=== PATIENT | female | born 1990 | race Caucasian/White ===

== ENCOUNTER 2016-07-27 16:52 | Emergency (ER) | payer OTHER ==
[~2016-07-27] VITALS: Ht 170.2 cm; Wt 56.7 kg
[~2016-07-27 16:52] MED LIST: AMIT10TA PO; BIRTH CONTROL PILL PO; FENTANY TD; GUAI200T3 PO; HYDR-3138 PO; INSU100C5 SQ-INSULIN; INSU100V13 SQ; INSU100V13 SQ-INSULIN; LEVO500T33 PO; NICO1PAT10 TD; NORT10CA PO; NORT50CA PO; OXYC-223 PO; OXYC5TAB3 PO; POLY17PO5 PO; PREG100C PO; SULF1TAB24 PO
[2016-07-27] MEDS ORDERED: LIDOCAINE 1%-EPI 1:100K, 20ML SQ ONE (17:30)
[2016-07-27] MEDS ORDERED: HYDROcodone/APAP 5/325 TABLET ONE (17:55)
[2016-07-27] MEDS ORDERED: HYDROcodone/APAP 5/325 TABLET PO ONE (18:00)
[2016-07-27] MEDS ORDERED: CEFAZOLIN 1,000 MG IM ONE (18:30)
[2016-07-27] MEDS ORDERED: SULFAMETH./TRIMETHOPRIM DS 800MG/160MG TABLET PO ONE (18:30)
[2016-07-27] MEDS ORDERED: CEFAZOLIN 1,000 MG ONE (18:36)
[2016-07-27] MEDS ORDERED: SULFAMETH./TRIMETHOPRIM DS 800MG/160MG TABLET ONE (18:36)
[2016-07-27 19:01] VITALS: BP 118/76
== END 2016-07-27 19:04 | disposition home or self-care (01) ==
LOC: ED 18:28
DX: N76.4 Abscess of vulva (principal); E11.9 Type 2 diabetes mellitus without complications
CPT/HCPCS: 96372; 99284; J0690; J3490

== ENCOUNTER 2016-08-01 19:52 | Inpatient (IN) | payer OTHER ==
[~2016-08-01] VITALS: Ht 170.2 cm; Wt 67.0 kg
[2016-08-01] MEDS ORDERED: ONDANSETRON 2MG/ML, 2ML IVPush ONE (20:30)
[2016-08-01 20:44] LABS: BLOOD UREA NITROGEN 12 mg/dL (7-18)
[2016-08-01 20:50] LABS: ASPARTATE AMINO TRANSFERASE 32 U/L (15-37)
[2016-08-01] MEDS ORDERED: SODIUM CHLORIDE 0.9% 1,000 ML IV ONE (20:56)
[2016-08-01] MEDS ORDERED: MORPHINE SULFATE 4 MG/ML, 1ML ONE ×3 (20:59→23:55)
[2016-08-01] MEDS ORDERED: ONDANSETRON 2MG/ML, 2ML ONE (20:59)
[2016-08-01] MEDS ORDERED: SODIUM CHLORIDE FLUSH 10ML SYR IVF ONE (21:00)
[2016-08-01] MEDS ORDERED: SODIUM CHLORIDE 0.9% 1,000ML IVBOLUS ONE ×2 (21:00→21:30)
[2016-08-01] MEDS: MORPHINE SULFATE 4 MG/ML, 1ML IVPush PRN ×2 (21:06→22:10)
[2016-08-01] MEDS ORDERED: INSULIN REGULAR 100 UNITS/ML, 3ML VIAL IVPush ONE (21:30)
[2016-08-01] MEDS ORDERED: POTASSIUM CHLORIDE 20 MEQ TAB.ER.PRT PO ONE (21:30)
[2016-08-01] MEDS ORDERED: POTASSIUM CHLORIDE 20 MEQ TAB.ER.PRT ONE (21:59)
[2016-08-01] MEDS ORDERED: INSULIN REGULAR 100 UNITS/ML, 3ML VIAL ONE (22:00)
[2016-08-01] MEDS ORDERED: LIDOCAINE 1%-EPI 1:100K, 20ML ONE (23:16)
[2016-08-02] MEDS ORDERED: CEFTAROLINE 600 MG in SODIUM CHLORIDE 0.9% 100 ML IV ONE
[2016-08-02] MEDS ORDERED: MORPHINE SULFATE 4 MG/ML, 1ML IVPush ONE
[2016-08-02] MEDS ORDERED: DIPHENHYDRAMINE 50 MG/ML, 1ML ONE (00:24)
[2016-08-02] MEDS ORDERED: DIPHENHYDRAMINE 50 MG/ML, 1ML IVPush ONE (00:30)
[2016-08-02] MEDS ORDERED: SODIUM CHLORIDE 0.9% 1,000 ML IV ONE (01:06)
[2016-08-02] MEDS ORDERED: MORPHINE SULFATE 4 MG/ML, 1ML IVPush PRN (01:30)
[2016-08-02] MEDS ORDERED: ONDANSETRON 2MG/ML, 2ML IVPush PRN ×2 (01:30→15:30)
[2016-08-02] MEDS ORDERED: ACETAMINOPHEN 325 MG TABLET PO PRN (01:30)
[2016-08-02] MEDS ORDERED: OMNIPAQUE 350 MG/ML, 100ML BOTTLE ONE (02:30)
[2016-08-02] MEDS: NICOTINE 14MG/24 HR PATCH.TD24 TD SCH (02:40)
[2016-08-02] MEDS: INSULIN ASPART 100 UNITS/ML, PEN SQ-INSULIN SCH ×5 (03:23→22:25)
[2016-08-02 04:35] VITALS: BP 122/88
[2016-08-02 07:28] VITALS: BP 109/71
[2016-08-02] MEDS: FAMOTIDINE 20 MG TABLET PO SCH ×2 (08:37→22:00)
[2016-08-02] MEDS: NS + 20MEQ KCL 1,000 ML IV SCH ×2 (08:37→19:56)
[2016-08-02] MEDS ORDERED: morphine SULFATE 10 MG/ML, 1ML ONE (09:36)
[2016-08-02] MEDS: MORPHINE SULFATE 4 MG/ML, 1ML IVPush PRN ×3 (09:42→18:42)
[2016-08-02] MEDS: DIPHENHYDRAMINE 25 MG CAPSULE PO PRN ×2 (11:01→22:01)
[2016-08-02] MEDS ORDERED: DEXTROSE 50%, 50ML SYRINGE IVPush PRN (11:30)
[2016-08-02] MEDS ORDERED: LORazepam 2 MG/ML, 1ML IVPush PRN (11:30)
[2016-08-02] MEDS: SODIUM CHLORIDE FLUSH 10ML SYR IVF SCH ×2 (11:30→22:00)
[2016-08-02] MEDS ORDERED: GLUCAGON 1 MG IM PRN (11:30)
[2016-08-02] MEDS ORDERED: DEXTROSE 4 GM TAB.CHEW PO PRN (11:30)
[2016-08-02] MEDS: CEFTAROLINE 600 MG in SODIUM CHLORIDE 0.9% 100 ML IV SCH (12:13)
[2016-08-02] MEDS ORDERED: MIDAZOLAM 1 MG/ML, 2ML ONE (14:36)
[2016-08-02] MEDS ORDERED: FENTANYL PF 100 MCG/2ML ONE ×2 (14:36→15:44)
[2016-08-02] MEDS ORDERED: PROPOFOL 10 MG/ML, 20ML ONE ×2 (14:43)
[2016-08-02] MEDS ORDERED: ONDANSETRON 2MG/ML, 2ML ONE ×2 (14:43)
[2016-08-02] MEDS ORDERED: CEFAZOLIN 1,000 MG ONE ×2 (14:43)
[2016-08-02] MEDS ORDERED: ROCURONIUM 10 MG/ML ONE ×2 (14:43)
[2016-08-02] MEDS ORDERED: KETOROLAC 30 MG/1 ML ONE ×2 (14:43)
[2016-08-02] MEDS ORDERED: SUCCINYLCHOLINE 20 MG/ML, 10ML ONE ×2 (14:43)
[2016-08-02] MEDS ORDERED: DEXAMETHASONE 4 MG/ML, 1ML ONE ×2 (14:43)
[2016-08-02] MEDS ORDERED: MIDAZOLAM 1 MG/ML, 2ML IV PRN (15:30)
[2016-08-02] MEDS ORDERED: FENTANYL PF 100 MCG/2ML IV PRN (15:30)
[2016-08-02] MEDS ORDERED: MEPERIDINE/PF 25MG/0.5ML IVPush PRN (15:30)
[2016-08-02] MEDS ORDERED: OXYcodone 5 MG/5 ML ORAL.SOL UDC PO PRN (15:30)
[2016-08-02] MEDS ORDERED: ALBUTEROL SULFATE 2.5 MG/3 ML NPPB PRN (15:30)
[2016-08-02] MEDS ORDERED: LABETALOL 5MG/ML, 20ML IV PRN (15:30)
[2016-08-02] MEDS ORDERED: hydrALAzine 20 MG/ML, 1ML IV PRN (15:30)
[2016-08-02] MEDS ORDERED: HYDROmorphone 2 MG/ML, 1ML ONE (15:44)
[2016-08-02] MEDS ORDERED: OXYcodone 5 MG/5 ML ORAL.SOL UDC ONE (15:44)
[2016-08-02] MEDS: HYDROmorphone 1 MG/ML, 1ML IV PRN ×4 (15:49→16:22)
[2016-08-02 19:11] VITALS: BP 109/73
[2016-08-02 20:28] LABS: BLOOD UREA NITROGEN 9 mg/dL (7-18)
[2016-08-02] MEDS: OXYcodone/APAP 5/325MG TABLET PO PRN (22:01)
[2016-08-03 00:30] VITALS: BP 102/68
[2016-08-03] MEDS: CEFTAROLINE 600 MG in SODIUM CHLORIDE 0.9% 100 ML IV SCH ×2 (00:33→12:13)
[2016-08-03] MEDS: MORPHINE SULFATE 4 MG/ML, 1ML IVPush PRN ×2 (00:33→13:18)
[2016-08-03] MEDS: NICOTINE 14MG/24 HR PATCH.TD24 TD SCH (01:30)
[2016-08-03] MEDS: OXYcodone/APAP 5/325MG TABLET PO PRN ×6 (01:57→22:47)
[2016-08-03 04:00] VITALS: BP 106/73
[2016-08-03 05:44] LABS: BLOOD UREA NITROGEN 16 mg/dL (7-18)
[2016-08-03] MEDS: NS + 20MEQ KCL 1,000 ML IV SCH ×2 (06:20→14:30)
[2016-08-03 06:50] VITALS: BP 119/83
[2016-08-03] MEDS: INSULIN ASPART 100 UNITS/ML, PEN SQ-INSULIN SCH ×4 (07:19→21:00)
[2016-08-03] MEDS: FAMOTIDINE 20 MG TABLET PO SCH ×2 (10:27→21:49)
[2016-08-03] MEDS: SODIUM CHLORIDE FLUSH 10ML SYR IVF SCH ×2 (10:28→21:49)
[2016-08-03] MEDS: LORazepam 2 MG/ML, 1ML IVPush PRN (13:17)
[2016-08-03 14:44] VITALS: BP 120/76
[2016-08-03] MEDS: ENOXAPARIN 40 MG/0.4 ML SQ SCH (17:12)
[2016-08-03 20:55] VITALS: BP 126/69
[2016-08-04] MEDS: CEFTAROLINE 600 MG in SODIUM CHLORIDE 0.9% 100 ML IV SCH ×2 (01:00→14:26)
[2016-08-04] MEDS: NICOTINE 14MG/24 HR PATCH.TD24 TD SCH (01:01)
[2016-08-04 02:30] VITALS: BP 115/62
[2016-08-04] MEDS: OXYcodone/APAP 5/325MG TABLET PO PRN ×4 (03:17→19:48)
[2016-08-04 04:58] LABS: BLOOD UREA NITROGEN 24 mg/dL (7-18)
[2016-08-04 05:00] VITALS: BP 112/78
[2016-08-04 06:40] VITALS: BP 117/82
[2016-08-04] MEDS: INSULIN ASPART 100 UNITS/ML, PEN SQ-INSULIN SCH ×5 (07:14→21:00)
[2016-08-04 08:33] VITALS: BP 129/90
[2016-08-04] MEDS: SODIUM CHLORIDE FLUSH 10ML SYR IVF SCH ×2 (08:55→21:00)
[2016-08-04 13:03] VITALS: BP 123/88
[2016-08-04] MEDS: ENOXAPARIN 40 MG/0.4 ML SQ SCH (16:30)
[2016-08-04 20:23] VITALS: BP_SYST 105; BP_SYST 137; BP_DIAS 101; BP_DIAS 69
[2016-08-05] MEDS: OXYcodone IR 5MG TABLET PO PRN ×5 (00:19→19:41)
[2016-08-05] MEDS: NICOTINE 14MG/24 HR PATCH.TD24 TD SCH (00:52)
[2016-08-05 01:17] VITALS: BP 121/86
[2016-08-05] MEDS: CEFTAROLINE 600 MG in SODIUM CHLORIDE 0.9% 100 ML IV SCH ×2 (03:02→15:28)
[2016-08-05 04:46] LABS: BLOOD UREA NITROGEN 20 mg/dL (7-18)
[2016-08-05] MEDS: ONDANSETRON 2MG/ML, 2ML IVP PRN ×3 (05:25→19:40)
[2016-08-05] MEDS: INSULIN ASPART 100 UNITS/ML, PEN SQ-INSULIN SCH ×4 (07:00→21:00)
[2016-08-05] MEDS: SODIUM CHLORIDE FLUSH 10ML SYR IVF SCH ×2 (08:30→21:58)
[2016-08-05 08:34] VITALS: BP 140/97
[2016-08-05] MEDS: MORPHINE SULFATE 4 MG/ML, 1ML IVPush PRN ×2 (12:24→19:40)
[2016-08-05 13:43] VITALS: BP 110/73
[2016-08-05] MEDS: ENOXAPARIN 40 MG/0.4 ML SQ SCH (16:30)
[2016-08-05 19:07] VITALS: BP 112/77
[2016-08-05] MEDS: FLUCONAZOLE 200 MG/100 ML 100 ML IV SCH (21:52)
[2016-08-06] MEDS: MORPHINE SULFATE 4 MG/ML, 1ML IVPush PRN ×2 (00:26→13:32)
[2016-08-06] MEDS: LORazepam 2 MG/ML, 1ML IVPush PRN ×2 (00:26→04:37)
[2016-08-06] MEDS: NICOTINE 14MG/24 HR PATCH.TD24 TD SCH (00:27)
[2016-08-06 01:58] VITALS: BP 107/75
[2016-08-06] MEDS: ONDANSETRON 2MG/ML, 2ML IVP PRN ×3 (02:21→14:31)
[2016-08-06] MEDS: CEFTAROLINE 600 MG in SODIUM CHLORIDE 0.9% 100 ML IV SCH ×2 (02:21→14:31)
[2016-08-06] MEDS: OXYcodone IR 5MG TABLET PO PRN ×3 (04:43→16:15)
[2016-08-06 05:41] LABS: BLOOD UREA NITROGEN 15 mg/dL (7-18)
[2016-08-06] MEDS: INSULIN ASPART 100 UNITS/ML, PEN SQ-INSULIN SCH ×4 (07:00→21:00)
[2016-08-06 07:38] VITALS: BP 108/76
[2016-08-06] MEDS: SODIUM CHLORIDE FLUSH 10ML SYR IVF SCH ×2 (08:17→22:21)
[2016-08-06 13:08] VITALS: BP 117/84
[2016-08-06] MEDS: ENOXAPARIN 40 MG/0.4 ML SQ SCH ×2 (15:54→18:10)
[2016-08-06 18:33] VITALS: BP 123/86
[2016-08-06] MEDS: FLUCONAZOLE 200 MG/100 ML 100 ML IV SCH (19:59)
[2016-08-06] MEDS: METOCLOPRAMIDE 5 MG/ML, 2ML IVPush PRN (19:59)
[2016-08-06] MEDS: LACTOBACILLUS CHEW TABLET PO SCH (22:19)
[2016-08-06] MEDS: BISACODYL 5 MG EC TABLET PO SCH (22:19)
[2016-08-07] MEDS: NICOTINE 14MG/24 HR PATCH.TD24 TD SCH (01:30)
[2016-08-07 02:03] VITALS: BP 129/90
[2016-08-07] MEDS: CEFTAROLINE 600 MG in SODIUM CHLORIDE 0.9% 100 ML IV SCH ×2 (02:37→14:27)
[2016-08-07] MEDS: METOCLOPRAMIDE 5 MG/ML, 2ML IVPush PRN ×3 (02:38→20:52)
[2016-08-07 06:36] LABS: BLOOD UREA NITROGEN 13 mg/dL (7-18)
[2016-08-07] MEDS: INSULIN ASPART 100 UNITS/ML, PEN SQ-INSULIN SCH ×4 (07:00→20:52)
[2016-08-07 07:16] VITALS: BP 117/83
[2016-08-07] MEDS: BISACODYL 5 MG EC TABLET PO SCH ×2 (09:03→20:52)
[2016-08-07] MEDS: OXYcodone IR 5MG TABLET PO PRN ×2 (09:03→16:46)
[2016-08-07] MEDS: LACTOBACILLUS CHEW TABLET PO SCH ×3 (09:03→20:52)
[2016-08-07] MEDS: SODIUM CHLORIDE FLUSH 10ML SYR IVF SCH ×2 (09:05→20:52)
[2016-08-07] MEDS: POLYETHYLENE GLYCOL 17 GM PACKET PO PRN (12:54)
[2016-08-07 14:48] VITALS: BP 119/79
[2016-08-07] MEDS: ENOXAPARIN 40 MG/0.4 ML SQ SCH (17:45)
[2016-08-07] MEDS ORDERED: BISACODYL 10 MG SUPP PR PRN (18:00)
[2016-08-07 19:10] VITALS: BP 97/58
[2016-08-07] MEDS: FLUCONAZOLE 200 MG/100 ML 100 ML IV SCH (20:51)
[2016-08-08] MEDS: NICOTINE 14MG/24 HR PATCH.TD24 TD SCH (01:29)
[2016-08-08 01:47] VITALS: BP 99/63
[2016-08-08] MEDS: CEFTAROLINE 600 MG in SODIUM CHLORIDE 0.9% 100 ML IV SCH ×2 (02:38→14:57)
[2016-08-08] MEDS: METOCLOPRAMIDE 5 MG/ML, 2ML IVPush PRN (04:02)
[2016-08-08 07:02] LABS: BLOOD UREA NITROGEN 14 mg/dL (7-18)
[2016-08-08] MEDS: BISACODYL 5 MG EC TABLET PO SCH ×2 (07:40→19:52)
[2016-08-08] MEDS: LACTOBACILLUS CHEW TABLET PO SCH ×3 (07:40→20:03)
[2016-08-08] MEDS: OXYcodone IR 5MG TABLET PO PRN ×2 (07:40→20:03)
[2016-08-08] MEDS: POLYETHYLENE GLYCOL 17 GM PACKET PO PRN (07:40)
[2016-08-08] MEDS: SODIUM CHLORIDE FLUSH 10ML SYR IVF SCH ×2 (07:41→20:06)
[2016-08-08 07:50] VITALS: BP 116/79
[2016-08-08] MEDS: INSULIN ASPART 100 UNITS/ML, PEN SQ-INSULIN SCH ×4 (09:01→20:08)
[2016-08-08] MEDS: MORPHINE SULFATE 4 MG/ML, 1ML IVPush PRN (13:41)
[2016-08-08 15:30] VITALS: BP 103/64
[2016-08-08] MEDS: ENOXAPARIN 40 MG/0.4 ML SQ SCH (17:21)
[2016-08-08 19:43] VITALS: BP 102/69
[2016-08-08] MEDS: FLUCONAZOLE 200 MG/100 ML 100 ML IV SCH (20:03)
[2016-08-09] MEDS: NICOTINE 14MG/24 HR PATCH.TD24 TD SCH (01:30)
[2016-08-09] MEDS: CEFTAROLINE 600 MG in SODIUM CHLORIDE 0.9% 100 ML IV SCH ×2 (02:36→17:54)
[2016-08-09 02:42] VITALS: BP 110/73
[2016-08-09] MEDS: INSULIN ASPART 100 UNITS/ML, PEN SQ-INSULIN SCH ×4 (07:00→21:09)
[2016-08-09] MEDS: SODIUM CHLORIDE FLUSH 10ML SYR IVF SCH ×2 (08:28→20:55)
[2016-08-09] MEDS: BISACODYL 5 MG EC TABLET PO SCH ×2 (08:28→20:56)
[2016-08-09] MEDS: LACTOBACILLUS CHEW TABLET PO SCH ×3 (08:29→20:55)
[2016-08-09 08:38] VITALS: BP 116/77
[2016-08-09] MEDS ORDERED: VANCOMYCIN PER PHARMACY MC PRN (10:00)
[2016-08-09] MEDS ORDERED: AMPICILLIN/SULBACTAM 3 GM in SODIUM CHLORIDE 0.9% 100 ML IV SCH (11:00)
[2016-08-09] MEDS: [UNRECOGNIZED DRUG - REMARK] MC SCH ×2 (13:30→14:30)
[2016-08-09 14:00] VITALS: BP 120/81
[2016-08-09] MEDS: METRONIDAZOLE PMX 500MG/100ML 100 ML IV SCH ×2 (15:55→23:17)
[2016-08-09] MEDS: MORPHINE SULFATE 4 MG/ML, 1ML IVPush PRN (16:24)
[2016-08-09] MEDS: ENOXAPARIN 40 MG/0.4 ML SQ SCH (18:00)
[2016-08-09 19:38] VITALS: BP 114/79
[2016-08-09] MEDS: OXYcodone IR 5MG TABLET PO PRN (20:55)
[2016-08-09] MEDS: FLUCONAZOLE 200 MG/100 ML 100 ML IV SCH (20:55)
[2016-08-10] MEDS: NICOTINE 14MG/24 HR PATCH.TD24 TD SCH (00:43)
[2016-08-10] MEDS: OXYcodone IR 5MG TABLET PO PRN ×5 (00:56→20:29)
[2016-08-10 01:29] VITALS: BP 102/69
[2016-08-10 05:53] LABS: BLOOD UREA NITROGEN 20 mg/dL (7-18)
[2016-08-10] MEDS: CEFTAROLINE 600 MG in SODIUM CHLORIDE 0.9% 100 ML IV SCH ×2 (06:19→17:52)
[2016-08-10] MEDS: INSULIN ASPART 100 UNITS/ML, PEN SQ-INSULIN SCH ×4 (07:00→20:46)
[2016-08-10 07:40] VITALS: BP 105/72
[2016-08-10] MEDS: METRONIDAZOLE PMX 500MG/100ML 100 ML IV SCH ×3 (07:53→23:09)
[2016-08-10] MEDS: LACTOBACILLUS CHEW TABLET PO SCH ×3 (07:54→20:28)
[2016-08-10] MEDS: BISACODYL 5 MG EC TABLET PO SCH ×2 (07:54→20:29)
[2016-08-10] MEDS: SODIUM CHLORIDE FLUSH 10ML SYR IVF SCH ×2 (07:54→20:53)
[2016-08-10] MEDS: ONDANSETRON 2MG/ML, 2ML IVP PRN ×2 (08:06→20:29)
[2016-08-10] MEDS: MORPHINE SULFATE 4 MG/ML, 1ML IVPush PRN (09:20)
[2016-08-10] MEDS: METOCLOPRAMIDE 5 MG/ML, 2ML IVPush PRN (10:48)
[2016-08-10 13:52] VITALS: BP 100/64
[2016-08-10] MEDS: ENOXAPARIN 40 MG/0.4 ML SQ SCH (17:52)
[2016-08-10 20:06] VITALS: BP 101/67
[2016-08-10] MEDS: FLUCONAZOLE 200 MG/100 ML 100 ML IV SCH (20:28)
[2016-08-11 00:48] VITALS: BP 112/77
[2016-08-11] MEDS: NICOTINE 14MG/24 HR PATCH.TD24 TD SCH (01:01)
[2016-08-11] MEDS: CEFTAROLINE 600 MG in SODIUM CHLORIDE 0.9% 100 ML IV SCH ×2 (05:37→18:44)
[2016-08-11] MEDS: OXYcodone IR 5MG TABLET PO PRN ×3 (05:37→22:16)
[2016-08-11] MEDS: INSULIN ASPART 100 UNITS/ML, PEN SQ-INSULIN SCH ×4 (07:00→20:48)
[2016-08-11 07:35] VITALS: BP 114/81
[2016-08-11] MEDS: METRONIDAZOLE PMX 500MG/100ML 100 ML IV SCH ×2 (07:56→16:18)
[2016-08-11] MEDS: LACTOBACILLUS CHEW TABLET PO SCH ×3 (07:56→20:06)
[2016-08-11] MEDS: BISACODYL 5 MG EC TABLET PO SCH ×2 (07:56→20:06)
[2016-08-11] MEDS: SODIUM CHLORIDE FLUSH 10ML SYR IVF SCH ×2 (07:59→20:06)
[2016-08-11] MEDS: ONDANSETRON 2MG/ML, 2ML IVP PRN ×2 (11:12→18:49)
[2016-08-11] MEDS: MORPHINE SULFATE 4 MG/ML, 1ML IVPush PRN (11:12)
[2016-08-11 14:00] VITALS: BP 110/74
[2016-08-11] MEDS: ENOXAPARIN 40 MG/0.4 ML SQ SCH (18:44)
[2016-08-11] MEDS: FLUCONAZOLE 200 MG/100 ML 100 ML IV SCH (20:05)
[2016-08-11 20:50] VITALS: BP 105/71
[2016-08-12] MEDS: METRONIDAZOLE PMX 500MG/100ML 100 ML IV SCH ×3 (00:24→16:36)
[2016-08-12] MEDS: NICOTINE 14MG/24 HR PATCH.TD24 TD SCH (00:49)
[2016-08-12 01:12] VITALS: BP 100/65
[2016-08-12] MEDS: ONDANSETRON 2MG/ML, 2ML IVP PRN ×2 (04:00→08:44)
[2016-08-12] MEDS: CEFTAROLINE 600 MG in SODIUM CHLORIDE 0.9% 100 ML IV SCH ×2 (07:25→18:26)
[2016-08-12] MEDS: OXYcodone IR 5MG TABLET PO PRN (07:25)
[2016-08-12] MEDS: INSULIN ASPART 100 UNITS/ML, PEN SQ-INSULIN SCH ×4 (07:31→20:55)
[2016-08-12 07:46] VITALS: BP 106/70
[2016-08-12] MEDS: BISACODYL 5 MG EC TABLET PO SCH ×2 (08:44→21:06)
[2016-08-12] MEDS: SODIUM CHLORIDE FLUSH 10ML SYR IVF SCH ×2 (08:44→21:05)
[2016-08-12] MEDS: LACTOBACILLUS CHEW TABLET PO SCH ×3 (08:44→21:06)
[2016-08-12] MEDS: METOCLOPRAMIDE 5 MG/ML, 2ML IVPush PRN (10:29)
[2016-08-12 13:51] VITALS: BP 114/80
[2016-08-12] MEDS: ENOXAPARIN 40 MG/0.4 ML SQ SCH (18:26)
[2016-08-12 19:16] VITALS: BP 119/80
[2016-08-12] MEDS ORDERED: INSULIN ASPART 100 UNITS/ML, PEN SQ-INSULIN PRN (19:30)
[2016-08-12] MEDS: FLUCONAZOLE 200 MG/100 ML 100 ML IV SCH (21:06)
[2016-08-13] MEDS: METRONIDAZOLE PMX 500MG/100ML 100 ML IV SCH ×3 (00:47→17:10)
[2016-08-13] MEDS: NICOTINE 14MG/24 HR PATCH.TD24 TD SCH (00:47)
[2016-08-13] MEDS: OXYcodone IR 5MG TABLET PO PRN (00:47)
[2016-08-13] MEDS: ONDANSETRON 2MG/ML, 2ML IVP PRN ×2 (01:38→07:45)
[2016-08-13 02:00] VITALS: BP 127/86
[2016-08-13] MEDS: METOCLOPRAMIDE 5 MG/ML, 2ML IVPush PRN (06:43)
[2016-08-13] MEDS: CEFTAROLINE 600 MG in SODIUM CHLORIDE 0.9% 100 ML IV SCH ×2 (06:43→19:05)
[2016-08-13 07:32] VITALS: BP 103/69
[2016-08-13] MEDS: INSULIN ASPART 100 UNITS/ML, PEN SQ-INSULIN SCH ×4 (07:39→20:35)
[2016-08-13] MEDS: SODIUM CHLORIDE FLUSH 10ML SYR IVF SCH ×2 (07:40→21:29)
[2016-08-13] MEDS: LACTOBACILLUS CHEW TABLET PO SCH ×3 (07:40→21:30)
[2016-08-13] MEDS: BISACODYL 5 MG EC TABLET PO SCH ×2 (07:40→21:30)
[2016-08-13 13:59] VITALS: BP 102/68
[2016-08-13] MEDS: MORPHINE SULFATE 4 MG/ML, 1ML IVPush PRN (14:03)
[2016-08-13 19:35] VITALS: BP 131/88
[2016-08-13] MEDS: ENOXAPARIN 40 MG/0.4 ML SQ SCH (21:00)
[2016-08-13] MEDS: FLUCONAZOLE 200 MG/100 ML 100 ML IV SCH (21:29)
[2016-08-14] MEDS: METRONIDAZOLE PMX 500MG/100ML 100 ML IV SCH ×2 (00:51→08:06)
[2016-08-14 01:20] VITALS: BP 149/99
[2016-08-14] MEDS: NICOTINE 14MG/24 HR PATCH.TD24 TD SCH (01:26)
[2016-08-14] MEDS: ONDANSETRON 2MG/ML, 2ML IVP PRN ×2 (01:35→08:07)
[2016-08-14] MEDS: CEFTAROLINE 600 MG in SODIUM CHLORIDE 0.9% 100 ML IV SCH (06:19)
[2016-08-14 07:33] VITALS: BP 143/99
[2016-08-14] MEDS: BISACODYL 5 MG EC TABLET PO SCH ×2 (08:06→21:26)
[2016-08-14] MEDS: LACTOBACILLUS CHEW TABLET PO SCH ×3 (08:06→21:26)
[2016-08-14] MEDS: SODIUM CHLORIDE FLUSH 10ML SYR IVF SCH ×2 (08:07→21:26)
[2016-08-14] MEDS: INSULIN ASPART 100 UNITS/ML, PEN SQ-INSULIN SCH ×4 (08:12→21:00)
[2016-08-14 13:19] VITALS: BP 115/71
[2016-08-14] MEDS: OXYcodone IR 5MG TABLET PO PRN ×2 (15:34→20:17)
[2016-08-14 20:29] VITALS: BP 115/79
[2016-08-14] MEDS: ENOXAPARIN 40 MG/0.4 ML SQ SCH (21:00)
[2016-08-15] MEDS ORDERED: ASA/APAP/ CAFFEINE TABLET PO ONE (00:30)
[2016-08-15] MEDS: NICOTINE 14MG/24 HR PATCH.TD24 TD SCH (01:30)
[2016-08-15 02:51] VITALS: BP 118/80
[2016-08-15] MEDS: INSULIN ASPART 100 UNITS/ML, PEN SQ-INSULIN SCH ×4 (07:00→20:24)
[2016-08-15 07:44] VITALS: BP 101/66
[2016-08-15] MEDS: SODIUM CHLORIDE FLUSH 10ML SYR IVF SCH ×2 (09:00→20:23)
[2016-08-15] MEDS: BISACODYL 5 MG EC TABLET PO SCH ×2 (09:49→20:24)
[2016-08-15] MEDS: LACTOBACILLUS CHEW TABLET PO SCH ×3 (09:49→20:24)
[2016-08-15] MEDS: OXYcodone IR 5MG TABLET PO PRN ×2 (09:49→16:52)
[2016-08-15] MEDS: MORPHINE SULFATE 4 MG/ML, 1ML IVPush PRN (11:04)
[2016-08-15] MEDS: BACITRACIN/POLYMIXIN B SULFATE OINT 14 GM TP SCH (12:58)
[2016-08-15 13:46] VITALS: BP 107/71
[2016-08-15] MEDS: LORazepam 2 MG/ML, 1ML IVPush PRN (17:03)
[2016-08-15 19:51] VITALS: BP 101/69
[2016-08-15] MEDS: ENOXAPARIN 40 MG/0.4 ML SQ SCH (20:24)
[2016-08-16] MEDS: LORazepam 2 MG/ML, 1ML IVPush PRN ×4 (00:05→21:06)
[2016-08-16] MEDS: OXYcodone IR 5MG TABLET PO PRN ×4 (00:05→20:52)
[2016-08-16] MEDS: NICOTINE 14MG/24 HR PATCH.TD24 TD SCH (01:30)
[2016-08-16 03:25] VITALS: BP 99/63
[2016-08-16] MEDS: INSULIN ASPART 100 UNITS/ML, PEN SQ-INSULIN SCH ×4 (07:00→21:00)
[2016-08-16] MEDS: LACTOBACILLUS CHEW TABLET PO SCH ×3 (07:41→20:52)
[2016-08-16] MEDS: BISACODYL 5 MG EC TABLET PO SCH ×2 (07:41→20:51)
[2016-08-16] MEDS: SODIUM CHLORIDE FLUSH 10ML SYR IVF SCH ×2 (07:42→20:51)
[2016-08-16] MEDS: BACITRACIN/POLYMIXIN B SULFATE OINT 14 GM TP SCH (07:43)
[2016-08-16 07:50] VITALS: BP 111/73
[2016-08-16 16:09] VITALS: BP 108/73
[2016-08-16 18:47] VITALS: BP 110/73
[2016-08-16] MEDS: ENOXAPARIN 40 MG/0.4 ML SQ SCH (21:00)
[2016-08-17 01:22] VITALS: BP 105/71
[2016-08-17] MEDS: NICOTINE 14MG/24 HR PATCH.TD24 TD SCH (01:30)
[2016-08-17] MEDS: OXYcodone IR 5MG TABLET PO PRN ×3 (01:37→14:37)
[2016-08-17] MEDS: LORazepam 2 MG/ML, 1ML IVPush PRN ×4 (01:46→16:32)
[2016-08-17] MEDS: INSULIN ASPART 100 UNITS/ML, PEN SQ-INSULIN SCH ×4 (07:00→16:00)
[2016-08-17] MEDS: BISACODYL 5 MG EC TABLET PO SCH (08:26)
[2016-08-17] MEDS: LACTOBACILLUS CHEW TABLET PO SCH ×2 (08:27→16:33)
[2016-08-17] MEDS: BACITRACIN/POLYMIXIN B SULFATE OINT 14 GM TP SCH (08:27)
[2016-08-17] MEDS: SODIUM CHLORIDE FLUSH 10ML SYR IVF SCH (08:27)
[2016-08-17] MEDS: MORPHINE SULFATE 4 MG/ML, 1ML IVPush PRN (09:11)
[2016-08-17 09:55] VITALS: BP 118/79
[2016-08-17 15:30] VITALS: BP 118/79
[2016-08-17] MEDS ORDERED: HYDR-3241 PO (17:19)
== END 2016-08-17 18:09 | disposition home or self-care (01) | DRG 746 ==
LOC: ED 23:18 → EDIP 08-02 01:06 → 5SO 08-02 04:30 → 4NOR 08-02 17:50 → 5SO 08-04 08:32 → ICU 08-04 23:06 → 3NE 08-05 08:08
PROVIDERS: ADMIT Internal Medicine; ATTEND Internal Medicine
PROC: 0Y950ZZ Drainage of Right Inguinal Region, Open Approach (ICD-10-PCS; 2016-08-01)
PROC: 0T9B70Z Drainage of Bladder with Drainage Device, Via Natural or Artificial Opening (ICD-10-PCS; 2016-08-01)
PROC: 0U9M0ZZ Drainage of Vulva, Open Approach (ICD-10-PCS; principal; 2016-08-02 13:30)
DX: N76.4 Abscess of vulva (principal); L03.314 Cellulitis of groin; L02.214 Cutaneous abscess of groin; F17.210 Nicotine dependence, cigarettes, uncomplicated; E10.42 Type 1 diabetes mellitus with diabetic polyneuropathy; E10.65 Type 1 diabetes mellitus with hyperglycemia; E87.6 Hypokalemia; D63.8 Anemia in other chronic diseases classified elsewhere; D47.3 Essential (hemorrhagic) thrombocythemia; B95.62 Methicillin resistant Staphylococcus aureus infection as the cause of diseases classified elsewhere; K21.9 Gastro-esophageal reflux disease without esophagitis; Z96.41 Presence of insulin pump (external) (internal); Z83.3 Family history of diabetes mellitus; Z88.1 Allergy status to other antibiotic agents; Z88.8 Allergy status to other drugs, medicaments and biological substances; Z22.330 Carrier of Group B streptococcus
CPT/HCPCS: 36415; 56405; 74177; 80048; 80053; 81003; 82010; 82800; 82947; 82962; 83036; 83880; 84443; 84703; 85025; 85651; 86140; 87070; 87075; 87077; 87106; 87147; 87186; 87205; 93970; 96361; 96365; 96375; 96376; J0295; J0690; J0712; J1100; J1170; J1650; J1815; J1885; J2250; J2405; J2704; J3010; J3480; Q9967; J0330; J1200; J1450; J2060; J2765; J7030; Q0163

== ENCOUNTER → 2016-08-22 | Outpatient (CLI) | payer OTHER ==
[~2016-08-22] MED LIST changes: +HYDR-3241 PO
== END | disposition home or self-care (01) ==
LOC: WOUND 14:24
PROVIDERS: ATTEND Internal Medicine
DX: T81.31XD Disruption of external operation (surgical) wound, not elsewhere classified, subsequent encounter (principal); E11.622 Type 2 diabetes mellitus with other skin ulcer; L98.491 Non-pressure chronic ulcer of skin of other sites limited to breakdown of skin; K21.9 Gastro-esophageal reflux disease without esophagitis; F17.210 Nicotine dependence, cigarettes, uncomplicated; E11.42 Type 2 diabetes mellitus with diabetic polyneuropathy; Z72.89 Other problems related to lifestyle; Z86.14 Personal history of Methicillin resistant Staphylococcus aureus infection; Y83.8 Other surgical procedures as the cause of abnormal reaction of the patient, or of later complication, without mention of misadventure at the time of the procedure
CPT/HCPCS: 97597; 99215

== ENCOUNTER 2017-01-28 18:55 | Inpatient (IN) | payer OTHER ==
[~2017-01-28] VITALS: Ht 167.6 cm; Wt 58.0 kg
[~2017-01-28 18:55] MED LIST changes: -HYDR-3138 PO; +HYDR-3237 PO; -LEVO500T33 PO; +LEVO500T47 PO; +NICO-485 TD; -NICO1PAT10 TD; -OXYC-223 PO; +OXYC-306 PO
[2017-01-28] MEDS ORDERED: ONDANSETRON 2MG/ML, 2ML IVPush ONE (19:30)
[2017-01-28] MEDS ORDERED: SODIUM CHLORIDE FLUSH 10ML SYR IVF ONE (19:30)
[2017-01-28] MEDS ORDERED: SODIUM CHLORIDE 0.9% 1,000ML IVBOLUS ONE ×2 (19:30→20:30)
[2017-01-28] MEDS ORDERED: ONDANSETRON 2MG/ML, 2ML ONE (19:39)
[2017-01-28] MEDS ORDERED: MORPHINE SULFATE 4 MG/ML, 1ML ONE ×2 (19:39→21:00)
[2017-01-28 19:51] LABS: HEMATOCRIT 39.9 % (34.6-47.8); HEMOGLOBIN 13.4 g/dL (11.7-16.4); WHITE BLOOD COUNT 14.1 x10^3/uL (3.4-10)
[2017-01-28 20:01] LABS: BLOOD UREA NITROGEN 15 mg/dL (7-18)
[2017-01-28] MEDS: MORPHINE SULFATE 4 MG/ML, 1ML IV PRN ×2 (20:01→21:06)
[2017-01-28 20:30] LABS: PH, VENOUS 7.428 pH (7.320-7.420)
[2017-01-28] MEDS ORDERED: AMPICILLIN/SULBACTAM 3 GM in SODIUM CHLORIDE 0.9% 100 ML IV ONE (22:00)
[2017-01-28] MEDS ORDERED: AZITHROMYCIN 500 MG in SODIUM CHLORIDE 0.9% 250 ML IV ONE (22:00)
[2017-01-28 22:17] LABS: DAU SCREEN DISCLAIMER
[2017-01-28] MEDS ORDERED: POLYETHYLENE GLYCOL 17 GM PACKET PO PRN (22:30)
[2017-01-28] MEDS ORDERED: ACETAMINOPHEN 325 MG TABLET PO PRN (22:30)
[2017-01-28] MEDS ORDERED: DOCUSATE 100 MG CAPSULE PO PRN (22:30)
[2017-01-28] MEDS ORDERED: CIPROFLOXACIN/PMX 400MG/200ML 200 ML IV SCH (22:30)
[2017-01-28] MEDS: OXYcodone IR 5MG TABLET PO PRN (23:00)
[2017-01-28 23:24] VITALS: BP 127/63
[2017-01-28] MEDS: NICOTINE 7 MG/24 HR PATCH.TD24 TD SCH (23:30)
[2017-01-28] MEDS: LINEZOLID PMX 600MG/300ML 300 ML IV SCH (23:39)
[2017-01-28] MEDS: SODIUM CHLORIDE 0.9% 1,000 ML IV SCH (23:39)
[2017-01-29] MEDS: morphine SULFATE 10 MG/ML, 1ML IVPush PRN ×6 (00:33→21:02)
[2017-01-29 00:40] VITALS: BP 122/84
[2017-01-29] MEDS: INSULIN ASPART 100 UNITS/ML, PEN SQ-INSULIN SCH ×6 (00:56→21:58)
[2017-01-29] MEDS: ONDANSETRON 2MG/ML, 2ML IVPush PRN ×2 (01:43→16:07)
[2017-01-29] MEDS: CIPROFLOXACIN/PMX 400MG/200ML 200 ML IV SCH ×2 (02:49→14:22)
[2017-01-29 05:21] LABS: HEMATOCRIT 33.5 % (34.6-47.8); HEMOGLOBIN 11.6 g/dL (11.7-16.4); WHITE BLOOD COUNT 13.4 x10^3/uL (3.4-10)
[2017-01-29 05:23] LABS: BLOOD UREA NITROGEN 10 mg/dL (7-18)
[2017-01-29] MEDS: ENOXAPARIN 40 MG/0.4 ML SQ SCH (05:43)
[2017-01-29 05:58] LABS: DIFF TOTAL CELLS COUNTED 100 CELL DIFF
[2017-01-29] MEDS: OXYcodone IR 5MG TABLET PO PRN ×5 (05:59→22:05)
[2017-01-29 06:00] LABS: VERIFY COUNTS? YES
[2017-01-29 07:37] VITALS: BP 131/95
[2017-01-29] MEDS: SODIUM CHLORIDE 0.9% 1,000 ML IV SCH (08:20)
[2017-01-29] MEDS: LINEZOLID PMX 600MG/300ML 300 ML IV SCH ×2 (10:51→23:42)
[2017-01-29 12:30] VITALS: BP 123/87
[2017-01-29 18:27] VITALS: BP 126/87
[2017-01-29] MEDS: INSULIN DETEMIR 100 UNITS/ML, PEN SQ-INSULIN SCH (21:59)
[2017-01-29] MEDS: NICOTINE 7 MG/24 HR PATCH.TD24 TD SCH (22:20)
[2017-01-30 00:31] VITALS: BP 146/77
[2017-01-30] MEDS: morphine SULFATE 10 MG/ML, 1ML IVPush PRN ×5 (00:33→21:50)
[2017-01-30 00:34] VITALS: BP 127/83
[2017-01-30] MEDS: CIPROFLOXACIN/PMX 400MG/200ML 200 ML IV SCH ×2 (01:38→13:58)
[2017-01-30 05:43] LABS: HEMATOCRIT 38.8 % (34.6-47.8); HEMOGLOBIN 13.1 g/dL (11.7-16.4); WHITE BLOOD COUNT 14.8 x10^3/uL (3.4-10)
[2017-01-30] MEDS: ENOXAPARIN 40 MG/0.4 ML SQ SCH (05:45)
[2017-01-30 05:51] LABS: BLOOD UREA NITROGEN 9 mg/dL (7-18)
[2017-01-30 06:16] LABS: DIFF TOTAL CELLS COUNTED 100 CELL DIFF
[2017-01-30 06:20] LABS: LARGE PLATELETS 1+; VERIFY COUNTS? YES
[2017-01-30] MEDS: INSULIN ASPART 100 UNITS/ML, PEN SQ-INSULIN SCH ×4 (06:51→21:26)
[2017-01-30] MEDS ORDERED: INSULIN DETEMIR 100 UNITS/ML, PEN SQ-INSULIN SCH (07:00)
[2017-01-30] MEDS: OXYcodone IR 5MG TABLET PO PRN ×2 (09:51→14:02)
[2017-01-30 09:54] VITALS: BP 116/85
[2017-01-30] MEDS: LINEZOLID PMX 600MG/300ML 300 ML IV SCH ×2 (11:48→23:42)
[2017-01-30 17:30] VITALS: BP 130/77
[2017-01-30] MEDS ORDERED: DIPHENHYDRAMINE 25 MG CAPSULE ONE (17:54)
[2017-01-30] MEDS: DIPHENHYDRAMINE 25 MG CAPSULE PO PRN (17:57)
[2017-01-30 20:08] VITALS: BP 126/75
[2017-01-30] MEDS: PIPERACILLIN/TAZO/PMX 3.375GM 50 ML IV SCH (21:25)
[2017-01-30] MEDS: INSULIN DETEMIR 100 UNITS/ML, PEN SQ-INSULIN SCH (21:26)
[2017-01-30] MEDS: NICOTINE 7 MG/24 HR PATCH.TD24 TD SCH (23:30)
[2017-01-31 01:04] VITALS: BP 130/89
[2017-01-31] MEDS: morphine SULFATE 10 MG/ML, 1ML IVPush PRN ×4 (01:47→19:59)
[2017-01-31] MEDS: CIPROFLOXACIN/PMX 400MG/200ML 200 ML IV SCH (02:04)
[2017-01-31] MEDS: DIPHENHYDRAMINE 25 MG CAPSULE PO PRN (02:11)
[2017-01-31] MEDS: PIPERACILLIN/TAZO/PMX 3.375GM 50 ML IV SCH (05:34)
[2017-01-31] MEDS: ENOXAPARIN 40 MG/0.4 ML SQ SCH (05:37)
[2017-01-31 06:26] LABS: HEMATOCRIT 32.3 % (34.6-47.8); HEMOGLOBIN 11.1 g/dL (11.7-16.4)
[2017-01-31 07:00] LABS: BLOOD UREA NITROGEN 12 mg/dL (7-18)
[2017-01-31 07:02] LABS: DIFF TOTAL CELLS COUNTED 100 CELL DIFF
[2017-01-31 07:05] LABS: VERIFY COUNTS? YES
[2017-01-31 07:07] LABS: POLYCHROMASIA 1+
[2017-01-31 07:20] VITALS: BP 128/80
[2017-01-31] MEDS: OXYcodone IR 5MG TABLET PO PRN ×2 (08:49→15:00)
[2017-01-31] MEDS: INSULIN ASPART 100 UNITS/ML, PEN SQ-INSULIN SCH ×4 (09:27→20:49)
[2017-01-31] MEDS: LINEZOLID PMX 600MG/300ML 300 ML IV SCH (11:46)
[2017-01-31 12:14] LABS: RHEUMATOID FACTOR SCREEN NEGATIVE (NEGATIVE)
[2017-01-31 13:55] LABS: HIV 1&2 ANTIBODY SCREEN Nonreactive (Nonreactive); HIV-1 p24 ANTIGEN Nonreactive (Nonreactive)
[2017-01-31] MEDS: metroNIDAZOLE 500 MG TABLET PO SCH ×2 (14:49→20:48)
[2017-01-31] MEDS: CEFTAROLINE 600 MG in SODIUM CHLORIDE 0.9% 100 ML IV SCH (14:49)
[2017-01-31 19:11] VITALS: BP 123/78
[2017-01-31] MEDS: INSULIN DETEMIR 100 UNITS/ML, PEN SQ-INSULIN SCH (20:49)
[2017-01-31] MEDS: NICOTINE 7 MG/24 HR PATCH.TD24 TD SCH (23:30)
[2017-02-01 00:38] VITALS: BP 127/90
[2017-02-01 05:07] LABS: HEMATOCRIT 32.8 % (34.6-47.8); WHITE BLOOD COUNT 9.6 x10^3/uL (3.4-10)
[2017-02-01 05:26] LABS: BLOOD UREA NITROGEN 17 mg/dL (7-18)
[2017-02-01] MEDS: ENOXAPARIN 40 MG/0.4 ML SQ SCH (05:40)
[2017-02-01] MEDS: metroNIDAZOLE 500 MG TABLET PO SCH ×2 (05:46→18:02)
[2017-02-01] MEDS: morphine SULFATE 10 MG/ML, 1ML IVPush PRN ×4 (05:51→17:44)
[2017-02-01 05:53] LABS: DIFF TOTAL CELLS COUNTED 100 CELL DIFF
[2017-02-01 05:55] LABS: VERIFY COUNTS? YES
[2017-02-01 05:56] LABS: POLYCHROMASIA 1+
[2017-02-01 07:54] VITALS: BP 120/71
[2017-02-01] MEDS: CEFTAROLINE 600 MG in SODIUM CHLORIDE 0.9% 100 ML IV SCH ×2 (08:48→21:00)
[2017-02-01] MEDS: INSULIN ASPART 100 UNITS/ML, PEN SQ-INSULIN SCH ×4 (08:49→21:23)
[2017-02-01 14:10] VITALS: BP 115/73
[2017-02-01] MEDS ORDERED: OMNIPAQUE 350 MG/ML, 100ML BOTTLE ONE (17:21)
[2017-02-01 19:36] VITALS: BP 105/70
[2017-02-01] MEDS: INSULIN DETEMIR 100 UNITS/ML, PEN SQ-INSULIN SCH (21:23)
[2017-02-01] MEDS: NICOTINE 7 MG/24 HR PATCH.TD24 TD SCH (21:24)
[2017-02-02 00:57] VITALS: BP 111/69
[2017-02-02] MEDS: morphine SULFATE 10 MG/ML, 1ML IVPush PRN ×2 (01:17→17:07)
[2017-02-02] MEDS: metroNIDAZOLE 500 MG TABLET PO SCH ×3 (01:20→17:08)
[2017-02-02] MEDS: ENOXAPARIN 40 MG/0.4 ML SQ SCH (05:19)
[2017-02-02 05:29] LABS: HEMATOCRIT 34.1 % (34.6-47.8); HEMOGLOBIN 11.6 g/dL (11.7-16.4); WHITE BLOOD COUNT 7.2 x10^3/uL (3.4-10)
[2017-02-02 05:34] LABS: BLOOD UREA NITROGEN 13 mg/dL (7-18)
[2017-02-02 06:35] LABS: DIFF TOTAL CELLS COUNTED 100 CELL DIFF
[2017-02-02 06:38] LABS: VERIFY COUNTS? YES
[2017-02-02 06:39] LABS: POLYCHROMASIA 1+
[2017-02-02 07:45] VITALS: BP 141/82
[2017-02-02] MEDS: INSULIN ASPART 100 UNITS/ML, PEN SQ-INSULIN SCH ×4 (09:04→23:07)
[2017-02-02] MEDS: CEFTAROLINE 600 MG in SODIUM CHLORIDE 0.9% 100 ML IV SCH ×2 (09:04→21:15)
[2017-02-02] MEDS ORDERED: LIDOCAINE 1%, 20ML ONE (13:10)
[2017-02-02 14:30] VITALS: BP 120/75
[2017-02-02 19:12] VITALS: BP 133/72
[2017-02-02] MEDS ORDERED: DOCUSATE 100 MG CAPSULE PO PRN (20:00)
[2017-02-02] MEDS ORDERED: ACETAMINOPHEN 325 MG TABLET PO PRN (20:00)
[2017-02-02] MEDS ORDERED: POLYETHYLENE GLYCOL 17 GM PACKET PO PRN (20:00)
[2017-02-02] MEDS ORDERED: DIPHENHYDRAMINE 25 MG CAPSULE PO PRN (20:00)
[2017-02-02] MEDS: INSULIN DETEMIR 100 UNITS/ML, PEN SQ-INSULIN SCH (21:16)
[2017-02-02] MEDS: NICOTINE 7 MG/24 HR PATCH.TD24 TD SCH (23:30)
[2017-02-03 00:26] VITALS: BP 143/94
[2017-02-03] MEDS: metroNIDAZOLE 500 MG TABLET PO SCH ×3 (02:22→17:01)
[2017-02-03 04:17] LABS: HEMOGLOBIN 11.9 g/dL (11.7-16.4); WHITE BLOOD COUNT 6.6 x10^3/uL (3.4-10)
[2017-02-03 04:25] LABS: BLOOD UREA NITROGEN 13 mg/dL (7-18)
[2017-02-03] MEDS: ENOXAPARIN 40 MG/0.4 ML SQ SCH (05:29)
[2017-02-03 08:19] VITALS: BP 140/96
[2017-02-03] MEDS: CEFTAROLINE 600 MG in SODIUM CHLORIDE 0.9% 100 ML IV SCH ×2 (09:18→20:58)
[2017-02-03] MEDS: INSULIN ASPART 100 UNITS/ML, PEN SQ-INSULIN SCH ×4 (09:18→20:58)
[2017-02-03 16:30] VITALS: BP 133/83
[2017-02-03 19:27] VITALS: BP 123/71
[2017-02-03] MEDS: INSULIN DETEMIR 100 UNITS/ML, PEN SQ-INSULIN SCH (20:57)
[2017-02-03] MEDS: OXYcodone IR 5MG TABLET PO PRN (21:04)
[2017-02-03] MEDS: NICOTINE 7 MG/24 HR PATCH.TD24 TD SCH (23:30)
[2017-02-04 01:50] VITALS: BP 132/92
[2017-02-04] MEDS: metroNIDAZOLE 500 MG TABLET PO SCH ×3 (02:06→18:00)
[2017-02-04] MEDS: OXYcodone IR 5MG TABLET PO PRN ×2 (02:45→06:05)
[2017-02-04 05:00] LABS: HEMATOCRIT 35.6 % (34.6-47.8); HEMOGLOBIN 11.8 g/dL (11.7-16.4); WHITE BLOOD COUNT 8.2 x10^3/uL (3.4-10)
[2017-02-04 05:10] LABS: BLOOD UREA NITROGEN 22 mg/dL (7-18)
[2017-02-04] MEDS: ENOXAPARIN 40 MG/0.4 ML SQ SCH (05:48)
[2017-02-04 08:20] VITALS: BP 148/98
[2017-02-04 08:31] LABS: BLOOD UREA NITROGEN 21 mg/dL (7-18)
[2017-02-04] MEDS: INSULIN ASPART 100 UNITS/ML, PEN SQ-INSULIN SCH ×4 (08:46→21:43)
[2017-02-04] MEDS: CEFTAROLINE 600 MG in SODIUM CHLORIDE 0.9% 100 ML IV SCH ×2 (08:46→20:36)
[2017-02-04 14:58] VITALS: BP 133/84
[2017-02-04] MEDS: ONDANSETRON 2MG/ML, 2ML IVPush PRN (16:27)
[2017-02-04] MEDS ORDERED: INSULIN REGULAR 100 UNITS/ML, 3ML VIAL IVPush ONE (17:30)
[2017-02-04 18:07] LABS: POTASSIUM,URINE RANDOM 15 mmol/L
[2017-02-04] MEDS ORDERED: INSULIN REGULAR 100 UNITS/ML, 3ML VIAL SQ-INSULIN ONE (19:00)
[2017-02-04] MEDS: INSULIN DETEMIR 100 UNITS/ML, PEN SQ-INSULIN SCH (21:43)
[2017-02-04 21:55] VITALS: BP 114/70
[2017-02-04] MEDS: NICOTINE 7 MG/24 HR PATCH.TD24 TD SCH (23:30)
[2017-02-05] MEDS: metroNIDAZOLE 500 MG TABLET PO SCH ×3 (01:17→18:06)
[2017-02-05 04:41] VITALS: BP 119/81
[2017-02-05 05:44] LABS: HEMATOCRIT 36.7 % (34.6-47.8); HEMOGLOBIN 12.3 g/dL (11.7-16.4); WHITE BLOOD COUNT 6.6 x10^3/uL (3.4-10)
[2017-02-05 05:54] LABS: BLOOD UREA NITROGEN 22 mg/dL (7-18)
[2017-02-05] MEDS: ENOXAPARIN 40 MG/0.4 ML SQ SCH (06:00)
[2017-02-05] MEDS: INSULIN ASPART 100 UNITS/ML, PEN SQ-INSULIN SCH ×4 (07:56→21:40)
[2017-02-05 08:15] VITALS: BP 100/66
[2017-02-05] MEDS ORDERED: INSULIN DETEMIR 100 UNITS/ML, PEN SQ-INSULIN SCH ×2 (09:00→21:00)
[2017-02-05] MEDS: CEFTAROLINE 600 MG in SODIUM CHLORIDE 0.9% 100 ML IV SCH ×2 (09:00→21:26)
[2017-02-05] MEDS: OXYcodone IR 5MG TABLET PO PRN (10:08)
[2017-02-05 15:55] VITALS: BP 121/68
[2017-02-05 18:48] VITALS: BP 112/75
[2017-02-05] MEDS: NICOTINE 7 MG/24 HR PATCH.TD24 TD SCH (21:35)
[2017-02-06 01:34] VITALS: BP 111/74
[2017-02-06] MEDS: metroNIDAZOLE 500 MG TABLET PO SCH ×3 (01:35→17:06)
[2017-02-06 06:06] LABS: HEMATOCRIT 33.3 % (34.6-47.8); HEMOGLOBIN 11.2 g/dL (11.7-16.4); WHITE BLOOD COUNT 6.4 x10^3/uL (3.4-10)
[2017-02-06 06:08] LABS: TOXOPLASMA GONDII IGG <3.0 IU/mL (0.0-7.1); TOXOPLASMA GONDII IGM <3.0 AU/mL (0.0-7.9)
[2017-02-06 06:23] LABS: BLOOD UREA NITROGEN 25 mg/dL (7-18)
[2017-02-06] MEDS: ENOXAPARIN 40 MG/0.4 ML SQ SCH (08:24)
[2017-02-06] MEDS: INSULIN ASPART 100 UNITS/ML, PEN SQ-INSULIN SCH (08:24)
[2017-02-06 08:26] VITALS: BP 134/93
[2017-02-06] MEDS: CEFTAROLINE 600 MG in SODIUM CHLORIDE 0.9% 100 ML IV SCH ×2 (10:06→22:39)
[2017-02-06] MEDS ORDERED: INSULIN ASPART SQ-INSULIN ONE (12:00)
[2017-02-06] MEDS ORDERED: INSULIN ASPART 100 UNITS/ML, VIAL ONE (12:03)
[2017-02-06 16:12] VITALS: BP 125/85
[2017-02-06] MEDS: OXYcodone IR 5MG TABLET PO PRN ×2 (17:06→23:04)
[2017-02-06 18:44] VITALS: BP 137/92
[2017-02-06] MEDS: NICOTINE 7 MG/24 HR PATCH.TD24 TD SCH (23:30)
[2017-02-07 00:53] VITALS: BP 127/89
[2017-02-07] MEDS: metroNIDAZOLE 500 MG TABLET PO SCH ×3 (02:00→18:36)
[2017-02-07 05:31] LABS: HEMATOCRIT 33.9 % (34.6-47.8); HEMOGLOBIN 11.4 g/dL (11.7-16.4); WHITE BLOOD COUNT 5.4 x10^3/uL (3.4-10)
[2017-02-07 05:50] LABS: BLOOD UREA NITROGEN 26 mg/dL (7-18); C-REACTIVE PROTEIN, QUANT 0.08 mg/dL (0.02-0.49)
[2017-02-07 06:13] LABS: DIFF TOTAL CELLS COUNTED 100 CELL DIFF
[2017-02-07 06:15] LABS: VERIFY COUNTS? YES
[2017-02-07 06:16] LABS: POLYCHROMASIA 1+
[2017-02-07 07:17] VITALS: BP_SYST 112; BP_SYST 86; BP_DIAS 89
[2017-02-07] MEDS: ENOXAPARIN 40 MG/0.4 ML SQ SCH (09:00)
[2017-02-07 10:07] LABS: BARTONELLA HENSELAE IGG Negative titer (Neg:<1:320); BARTONELLA HENSELAE IGM Negative titer (Neg:<1:100); BARTONELLA QUINTANA IGM Negative titer (Neg:<1:100)
[2017-02-07] MEDS: CEFTAROLINE 600 MG in SODIUM CHLORIDE 0.9% 100 ML IV SCH ×2 (10:47→22:15)
[2017-02-07 13:46] VITALS: BP 122/89
[2017-02-07] MEDS: OXYcodone IR 5MG TABLET PO PRN (18:36)
[2017-02-07 20:42] VITALS: BP 123/83
[2017-02-07] MEDS: NICOTINE 7 MG/24 HR PATCH.TD24 TD SCH (23:30)
[2017-02-08] MEDS: metroNIDAZOLE 500 MG TABLET PO SCH ×2 (02:25→10:33)
[2017-02-08 04:00] VITALS: BP 121/65
[2017-02-08 04:31] VITALS: BP 129/87
[2017-02-08 05:36] LABS: HEMATOCRIT 34.1 % (34.6-47.8); HEMOGLOBIN 11.4 g/dL (11.7-16.4); WHITE BLOOD COUNT 5.9 x10^3/uL (3.4-10)
[2017-02-08 05:43] LABS: BLOOD UREA NITROGEN 31 mg/dL (7-18)
[2017-02-08 08:07] VITALS: BP 141/96
[2017-02-08] MEDS: ENOXAPARIN 40 MG/0.4 ML SQ SCH (08:09)
[2017-02-08] MEDS: CEFTAROLINE 600 MG in SODIUM CHLORIDE 0.9% 100 ML IV SCH (10:33)
[2017-02-08 14:35] VITALS: BP 143/91
[2017-02-08 20:15] VITALS: BP 125/88
[2017-02-08] MEDS: NICOTINE 7 MG/24 HR PATCH.TD24 TD SCH (23:30)
[2017-02-08] MEDS: OXYcodone IR 5MG TABLET PO PRN (23:32)
[2017-02-09 02:47] VITALS: BP 125/82
[2017-02-09] MEDS: OXYcodone IR 5MG TABLET PO PRN ×2 (04:47→08:57)
[2017-02-09 05:39] LABS: HEMATOCRIT 34.1 % (34.6-47.8); HEMOGLOBIN 11.4 g/dL (11.7-16.4); WHITE BLOOD COUNT 5.2 x10^3/uL (3.4-10)
[2017-02-09 05:41] LABS: BLOOD UREA NITROGEN 32 mg/dL (7-18)
[2017-02-09 06:12] LABS: DIFF TOTAL CELLS COUNTED 100 CELL DIFF
[2017-02-09 06:13] LABS: VERIFY COUNTS? YES
[2017-02-09 06:14] LABS: POLYCHROMASIA 1+
[2017-02-09] MEDS ORDERED: INSULIN REGULAR 100 UNITS/ML, 3ML VIAL IVPush ONE ×2 (07:30→17:30)
[2017-02-09 07:42] VITALS: BP 118/85
[2017-02-09] MEDS: ENOXAPARIN 40 MG/0.4 ML SQ SCH (07:57)
[2017-02-09 14:00] VITALS: BP 118/82
[2017-02-09] MEDS ORDERED: DOCUSATE 100 MG CAPSULE PO PRN (20:00)
[2017-02-09] MEDS ORDERED: POLYETHYLENE GLYCOL 17 GM PACKET PO PRN (20:00)
[2017-02-09] MEDS ORDERED: ACETAMINOPHEN 325 MG TABLET PO PRN (20:00)
[2017-02-09] MEDS ORDERED: DIPHENHYDRAMINE 25 MG CAPSULE PO PRN (20:00)
[2017-02-09 20:53] VITALS: BP 113/81
[2017-02-09] MEDS: NICOTINE 7 MG/24 HR PATCH.TD24 TD SCH (23:30)
[2017-02-10 03:55] VITALS: BP 130/90
[2017-02-10 05:09] LABS: HEMATOCRIT 36.9 % (34.6-47.8); HEMOGLOBIN 12.4 g/dL (11.7-16.4); WHITE BLOOD COUNT 6.1 x10^3/uL (3.4-10)
[2017-02-10 05:22] LABS: BLOOD UREA NITROGEN 26 mg/dL (7-18)
[2017-02-10] MEDS: OXYcodone IR 5MG TABLET PO PRN (07:23)
[2017-02-10 07:38] VITALS: BP 119/84
[2017-02-10] MEDS ORDERED: OXYC5TAB3 PO (08:35)
[2017-02-10] MEDS: ENOXAPARIN 40 MG/0.4 ML SQ SCH (09:00)
== END 2017-02-10 10:30 | disposition home or self-care (01) | DRG 872 ==
LOC: ED 21:40 → EDIP 21:45 → SUATTDRO 21:47 → ED 22:06 → 4WST 22:45
PROVIDERS: ADMIT Family Medicine; ATTEND Family Medicine
PROC: 07DH3ZX Extraction of Right Inguinal Lymphatic, Percutaneous Approach, Diagnostic (ICD-10-PCS; principal; 2017-02-02)
DX: A41.9 Sepsis, unspecified organism (principal); N17.9 Acute kidney failure, unspecified; E44.0 Moderate protein-calorie malnutrition; K31.84 Gastroparesis; E10.42 Type 1 diabetes mellitus with diabetic polyneuropathy; E10.319 Type 1 diabetes mellitus with unspecified diabetic retinopathy without macular edema; E87.1 Hypo-osmolality and hyponatremia; E10.65 Type 1 diabetes mellitus with hyperglycemia; N76.4 Abscess of vulva; E10.43 Type 1 diabetes mellitus with diabetic autonomic (poly)neuropathy; F12.90 Cannabis use, unspecified, uncomplicated; F17.210 Nicotine dependence, cigarettes, uncomplicated; I88.9 Nonspecific lymphadenitis, unspecified; K21.9 Gastro-esophageal reflux disease without esophagitis; Z79.4 Long term (current) use of insulin; Z83.3 Family history of diabetes mellitus; Z91.19 Patient's noncompliance with other medical treatment and regimen; Z96.41 Presence of insulin pump (external) (internal)
CPT/HCPCS: 36415; 38505; 74177; 76770; 76942; 80048; 80069; 80307; 81003; 82010; 82040; 82164; 82436; 82570; 82803; 82947; 82962; 83036; 83605; 83735; 84133; 84156; 84300; 84550; 85025; 85651; 86038; 86140; 86256; 86430; 86592; 86611; 86631; 86632; 86645; 86663; 86664; 86665; 86703; 86704; 86706; 86708; 86777; 86803; 87015; 87040; 87070; 87075; 87081; 87102; 87116; 87176; 87205; 87206; 87210; 87340; 87471; 87491; 87496; 87591; 87808; 87899; 88305; 93970; 96361; 96365; 96375; 96376; J0295; J0456; J0712; J0744; J1650; J1815; J2020; J2405; J2543; J3490; Q9967; G0435; G0479; J2270; J7030; J7050; Q0163

== ENCOUNTER 2017-03-08 19:08 | Inpatient (IN) | payer OTHER ==
[~2017-03-08] VITALS: Ht 170.2 cm; Wt 64.5 kg
[2017-03-08] MEDS ORDERED: ONDANSETRON 2MG/ML, 2ML ONE (20:19)
[2017-03-08] MEDS ORDERED: morphine SULFATE 10 MG/ML, 1ML ONE ×2 (20:19→21:02)
[2017-03-08] MEDS ORDERED: ONDANSETRON 2MG/ML, 2ML IVPush ONE (20:30)
[2017-03-08] MEDS ORDERED: MORPHINE SULFATE 4 MG/ML, 1ML IVPush ONE ×2 (20:30→21:00)
[2017-03-08] MEDS ORDERED: SODIUM CHLORIDE FLUSH 10ML SYR IVF ONE (21:00)
[2017-03-08] MEDS ORDERED: SODIUM CHLORIDE 0.9%, 500ML IVBOLUS ONE (21:00)
[2017-03-08 21:20] LABS: PH, VENOUS 7.438 pH (7.320-7.420)
[2017-03-08 21:22] LABS: HEMATOCRIT 40.7 % (34.6-47.8); HEMOGLOBIN 13.5 g/dL (11.7-16.4); WHITE BLOOD COUNT 4.8 x10^3/uL (3.4-10)
[2017-03-08 21:33] LABS: ASPARTATE AMINO TRANSFERASE 96 U/L (15-37); BLOOD UREA NITROGEN 19 mg/dL (7-18)
[2017-03-08] MEDS ORDERED: INSULIN REGULAR 100 UNITS/ML, 3ML VIAL ONE (21:57)
[2017-03-08] MEDS ORDERED: INSULIN REGULAR 100 UNITS/ML, 3ML VIAL IVPush ONE (22:00)
[2017-03-08] MEDS ORDERED: REGULAR INSULIN 62.5 UNITS in SODIUM CHLORIDE 0.9% 249.375 ML IV PRN ×2 (22:43→23:08)
[2017-03-08] MEDS ORDERED: SODIUM CHLORIDE 0.45% 1,000 ML IV ONE (23:00)
[2017-03-08] MEDS ORDERED: GLUCAGON 1 MG IM PRN (23:30)
[2017-03-08] MEDS ORDERED: DEXTROSE 4 GM TAB.CHEW PO PRN (23:30)
[2017-03-08] MEDS ORDERED: ENOXAPARIN 40 MG/0.4 ML SQ SCH (23:30)
[2017-03-08] MEDS ORDERED: DEXTROSE 50%, 50ML SYRINGE IVPush PRN (23:30)
[2017-03-08 23:48] LABS: BLOOD UREA NITROGEN 17 mg/dL (7-18)
[2017-03-08] MEDS ORDERED: HYDROmorphone 1 MG/ML, 1ML ONE (23:50)
[2017-03-08] MEDS: HYDROmorphone 2 MG/ML, 1ML IVPush PRN (23:55)
[2017-03-09] MEDS: ONDANSETRON 2MG/ML, 2ML IVPush PRN (00:47)
[2017-03-09] MEDS: D5%-0.45% NACL 1,000 ML IV SCH ×3 (01:35→07:08)
[2017-03-09] MEDS ORDERED: POTASSIUM CHLORIDE 30 MEQ in SODIUM CHLORIDE 0.9% 500 ML IV ONE (02:00)
[2017-03-09] MEDS: SODIUM CHLORIDE 0.9% 1,000 ML IV SCH ×3 (02:35→07:08)
[2017-03-09] MEDS: HYDROmorphone 2 MG/ML, 1ML IVPush PRN (03:14)
[2017-03-09 05:33] LABS: BLOOD UREA NITROGEN 13 mg/dL (7-18)
[2017-03-09] MEDS ORDERED: INSULIN ASPART 100 UNITS/ML, PEN SQ-INSULIN SCH (07:00)
[2017-03-09] MEDS ORDERED: MIDAZOLAM 1 MG/ML, 2ML ONE (07:11)
[2017-03-09] MEDS ORDERED: SUFentanil 50 MCG/ML, 1ML ONE (07:14)
[2017-03-09] MEDS ORDERED: PROPOFOL 10 MG/ML, 20ML ONE (07:14)
[2017-03-09] MEDS ORDERED: ROCURONIUM 10 MG/ML ONE (07:14)
[2017-03-09] MEDS ORDERED: PHENYLEPHRINE 10 MG/ML ONE (07:15)
[2017-03-09] MEDS ORDERED: CEFAZOLIN 1,000 MG ONE ×2 (07:15)
[2017-03-09] MEDS ORDERED: METOCLOPRAMIDE 5 MG/ML, 2ML ONE (07:32)
[2017-03-09] MEDS ORDERED: ONDANSETRON 2MG/ML, 2ML ONE ×2 (07:54)
[2017-03-09] MEDS ORDERED: KETOROLAC 30 MG/1 ML ONE (07:54)
[2017-03-09] MEDS ORDERED: DEXAMETHASONE 4 MG/ML, 1ML ONE (07:54)
[2017-03-09] MEDS ORDERED: KETAMINE 10 MG/ML, 20ML ONE (08:05)
[2017-03-09] MEDS ORDERED: METOCLOPRAMIDE 5 MG/ML, 2ML IV PRN (08:30)
[2017-03-09] MEDS ORDERED: ACETAMINOPHEN 325 MG TABLET PO PRN (08:30)
[2017-03-09] MEDS ORDERED: FENTANYL PF 100 MCG/2ML IV PRN (08:30)
[2017-03-09] MEDS ORDERED: hydrALAzine 20 MG/ML, 1ML IV PRN (08:30)
[2017-03-09] MEDS ORDERED: LORazepam 2 MG/ML, 1ML IVPush PRN (08:30)
[2017-03-09] MEDS ORDERED: MEPERIDINE/PF 25MG/0.5ML IVPush PRN (08:30)
[2017-03-09] MEDS ORDERED: ONDANSETRON 2MG/ML, 2ML IVPush PRN (08:30)
[2017-03-09] MEDS ORDERED: LABETALOL 5MG/ML, 20ML IV PRN (08:30)
[2017-03-09] MEDS ORDERED: HYDROmorphone 1 MG/ML, 1ML IV PRN (08:30)
[2017-03-09] MEDS ORDERED: ALBUTEROL SULFATE 2.5 MG/3 ML NPPB PRN (08:30)
[2017-03-09] MEDS ORDERED: NEOSTIGMINE 1 MG/ML, 10ML ONE (08:36)
[2017-03-09] MEDS ORDERED: GLYCOPYRROLATE 0.2MG/1ML, 5ML ONE ×2 (08:36)
[2017-03-09] MEDS ORDERED: OXYcodone 5 MG/5 ML ORAL.SOL UDC ONE (08:47)
[2017-03-09] MEDS ORDERED: FENTANYL PF 100 MCG/2ML ONE (08:47)
[2017-03-09] MEDS: SODIUM CHLORIDE FLUSH 10ML SYR IVF SCH ×2 (09:00→20:57)
[2017-03-09 09:23] LABS: BLOOD UREA NITROGEN 12 mg/dL (7-18)
[2017-03-09] MEDS: ENOXAPARIN 40 MG/0.4 ML SQ SCH (09:30)
[2017-03-09] MEDS: OXYcodone 5 MG/5 ML ORAL.SOL UDC PO PRN ×2 (09:50→21:11)
[2017-03-09] MEDS ORDERED: REGULAR INSULIN 62.5 UNITS in SODIUM CHLORIDE 0.9% 249.375 ML IV PRN (10:00)
[2017-03-09 11:00] VITALS: BP 108/76
[2017-03-09 12:28] LABS: BLOOD UREA NITROGEN 12 mg/dL (7-18)
[2017-03-09 12:45] VITALS: BP 106/76
[2017-03-09] MEDS: INSULIN DETEMIR 100 UNITS/ML, PEN SQ-INSULIN SCH (15:25)
[2017-03-09] MEDS: CEFAZOLIN PMX 1GM/50ML 50 ML IVPB SCH ×2 (16:41→23:32)
[2017-03-09] MEDS: INSULIN ASPART 100 UNITS/ML, PEN SQ-INSULIN SCH ×2 (16:46→20:56)
[2017-03-09 18:45] VITALS: BP 105/77
[2017-03-09 20:50] VITALS: BP 106/72
[2017-03-09 23:32] VITALS: BP 110/72
[2017-03-10] MEDS: OXYcodone IR 5MG TABLET PO PRN ×4 (01:02→21:50)
[2017-03-10] MEDS: ACETAMINOPHEN 325 MG TABLET PO PRN ×2 (01:03→06:39)
[2017-03-10] MEDS: INSULIN DETEMIR 100 UNITS/ML, PEN SQ-INSULIN SCH ×2 (03:46→17:26)
[2017-03-10 05:55] LABS: HEMATOCRIT 34.4 % (34.6-47.8); HEMOGLOBIN 11.8 g/dL (11.7-16.4)
[2017-03-10 06:01] LABS: BLOOD UREA NITROGEN 14 mg/dL (7-18)
[2017-03-10 07:32] VITALS: BP 115/72
[2017-03-10] MEDS: SODIUM CHLORIDE FLUSH 10ML SYR IVF SCH ×2 (07:41→21:50)
[2017-03-10] MEDS: INSULIN ASPART 100 UNITS/ML, PEN SQ-INSULIN SCH ×4 (07:41→22:07)
[2017-03-10] MEDS: ENOXAPARIN 40 MG/0.4 ML SQ SCH (07:42)
[2017-03-10] MEDS: HYDROmorphone 2 MG/ML, 1ML IVPush PRN (11:07)
[2017-03-10] MEDS: ONDANSETRON 2MG/ML, 2ML IVPush PRN (13:23)
[2017-03-10 13:51] LABS: DAU SCREEN DISCLAIMER
[2017-03-10 14:00] VITALS: BP 105/64
[2017-03-10] MEDS ORDERED: HYDROmorphone 1 MG/ML, 1ML IV PRN (14:30)
[2017-03-10 19:19] VITALS: BP 122/85
[2017-03-11] MEDS: OXYcodone IR 5MG TABLET PO PRN ×4 (02:40→16:13)
[2017-03-11 03:08] VITALS: BP 111/69
[2017-03-11 04:58] LABS: HEMATOCRIT 33.5 % (34.6-47.8); HEMOGLOBIN 11.2 g/dL (11.7-16.4); WHITE BLOOD COUNT 7.5 x10^3/uL (3.4-10)
[2017-03-11 05:08] LABS: BLOOD UREA NITROGEN 10 mg/dL (7-18)
[2017-03-11 05:11] LABS: ASPARTATE AMINO TRANSFERASE 39 U/L (15-37)
[2017-03-11] MEDS: INSULIN DETEMIR 100 UNITS/ML, PEN SQ-INSULIN SCH (05:48)
[2017-03-11 06:44] VITALS: BP 110/74
[2017-03-11] MEDS: INSULIN ASPART 100 UNITS/ML, PEN SQ-INSULIN SCH ×3 (08:42→16:59)
[2017-03-11] MEDS: SODIUM CHLORIDE FLUSH 10ML SYR IVF SCH (08:43)
[2017-03-11] MEDS: ENOXAPARIN 40 MG/0.4 ML SQ SCH (09:30)
[2017-03-11 12:41] VITALS: BP 116/81
[2017-03-11] MEDS ORDERED: ASPI-650 PO (16:19)
[2017-03-11] MEDS ORDERED: INSU100I28 SQ-INSULIN (16:19)
== END 2017-03-11 18:25 | disposition home or self-care (01) | DRG 480 ==
LOC: ED 21:08 → EDIP 23:37 → CCU 03-09 00:33 → 4NOR 03-09 10:48
PROVIDERS: ADMIT Family Medicine; ATTEND Family Medicine
PROC: 0QS604Z Reposition Right Upper Femur with Internal Fixation Device, Open Approach (ICD-10-PCS; principal; 2017-03-09 07:30)
DX: S72.141A Displaced intertrochanteric fracture of right femur, initial encounter for closed fracture (principal); G93.40 Encephalopathy, unspecified; E10.10 Type 1 diabetes mellitus with ketoacidosis without coma; E10.40 Type 1 diabetes mellitus with diabetic neuropathy, unspecified; F10.10 Alcohol abuse, uncomplicated; F12.90 Cannabis use, unspecified, uncomplicated; F15.90 Other stimulant use, unspecified, uncomplicated; F17.200 Nicotine dependence, unspecified, uncomplicated; K21.9 Gastro-esophageal reflux disease without esophagitis; W18.30XA Fall on same level, unspecified, initial encounter; Y93.89 Activity, other specified; Y92.89 Other specified places as the place of occurrence of the external cause; Y99.8 Other external cause status; Z91.19 Patient's noncompliance with other medical treatment and regimen; Z88.8 Allergy status to other drugs, medicaments and biological substances
CPT/HCPCS: 36415; 76000; 80048; 80053; 80307; 82010; 82803; 82962; 83036; 83735; 83930; 84702; 85025; 96361; 96374; 96375; 96376; C1713; J0690; J1100; J1170; J1815; J1885; J2250; J2405; J2704; J2710; J3010; J3480; J3490; G0479; J2370; J7040

== ENCOUNTER 2017-03-12 16:54 | Emergency (ER) | payer OTHER ==
[~2017-03-12] VITALS: Ht 167.6 cm; Wt 55.0 kg
[~2017-03-12 16:54] MED LIST changes: +ASPI-650 PO; +INSU100I28 SQ-INSULIN
[2017-03-12] MEDS ORDERED: SODIUM CHLORIDE 0.9% 1,000ML IVBOLUS ONE ×3 (17:30→20:00)
[2017-03-12 17:42] LABS: PH, VENOUS 7.378 pH (7.320-7.420)
[2017-03-12 17:43] LABS: HEMATOCRIT 33.3 % (34.6-47.8); HEMOGLOBIN 11.3 g/dL (11.7-16.4)
[2017-03-12 17:56] LABS: BLOOD UREA NITROGEN 16 mg/dL (7-18)
[2017-03-12] MEDS ORDERED: OXYcodone IR 5MG TABLET PO ONE (18:00)
[2017-03-12] MEDS ORDERED: OXYcodone IR 5MG TABLET ONE (18:16)
[2017-03-12] MEDS ORDERED: INSULIN REGULAR 100 UNITS/ML, 3ML VIAL ONE (18:17)
[2017-03-12] MEDS ORDERED: INSULIN REGULAR 100 UNITS/ML, 3ML VIAL IVPush ONE ×2 (18:30→20:00)
[2017-03-12] MEDS ORDERED: DOCUSATE 100 MG CAPSULE PO PRN (18:30)
[2017-03-12] MEDS ORDERED: DOCUSATE 100 MG CAPSULE ONE ×2 (18:40→20:08)
[2017-03-12] MEDS ORDERED: HYDROmorphone 1 MG/ML, 1ML ONE (19:46)
[2017-03-12] MEDS ORDERED: HYDROmorphone 1 MG/ML, 1ML IV ONE (20:00)
[2017-03-12 20:13] LABS: PATH.CAST-FLAG NOT PRESENT; SPERM-FLAG NOT PRESENT; SRC-FLAG NOT PRESENT; XTAL-FLAG NOT PRESENT; YLC-FLAG NOT PRESENT
[2017-03-12] MEDS ORDERED: DOCUSATE 100 MG CAPSULE PO ONE (20:30)
[2017-03-12 21:54] VITALS: BP 108/70
== END 2017-03-12 22:16 | disposition home or self-care (01) ==
LOC: ED 18:43
DX: E10.65 Type 1 diabetes mellitus with hyperglycemia (principal); L25.9 Unspecified contact dermatitis, unspecified cause; M25.551 Pain in right hip; K21.9 Gastro-esophageal reflux disease without esophagitis; Z98.890 Other specified postprocedural states; Z79.4 Long term (current) use of insulin
CPT/HCPCS: 36415; 80048; 81001; 82010; 82040; 82803; 82962; 83690; 85025; 96361; 96374; 96375; 96376; 99284; J1170; J7030

== ENCOUNTER 2017-04-17 20:39 | Emergency (ER) | payer OTHER ==
[~2017-04-17] VITALS: Ht 167.6 cm; Wt 58.7 kg
[2017-04-17] MEDS ORDERED: ONDANSETRON 2MG/ML, 2ML ONE (21:17)
[2017-04-17] MEDS ORDERED: SODIUM CHLORIDE 0.9% 1,000ML IVBOLUS ONE (21:30)
[2017-04-17] MEDS ORDERED: ONDANSETRON 2MG/ML, 2ML IVPush ONE (21:30)
[2017-04-17 21:36] LABS: PH, VENOUS 7.333 pH (7.320-7.420)
[2017-04-17 21:37] LABS: BASOPHILS # (AUTO) 0.03 x10^3/uL (0-0.1); BASOPHILS % (AUTO) 1 % (0-1); EOSINOPHILS # (AUTO) 0.07 x10^3/uL (0-0.4); EOSINOPHILS % (AUTO) 1 % (1-7); LYMPHOCYTES # (AUTO) 2.41 x10^3/uL (1-3.4); LYMPHOCYTES % (AUTO) 37 % (22-44); MD NO; MEAN CORPUSCULAR HEMOGLOBIN 27.4 pg (27.0-34.8); MEAN CORPUSCULAR HGB CONC 33.6 g/dL (32.4-35.8); MEAN CORPUSCULAR VOLUME 81.5 fL (80-100); MONOCYTES # (AUTO) 0.41 x10^3/uL (0.2-0.8); MONOCYTES % (AUTO) 6 % (2-9); NEUTROPHILS # (AUTO) 3.69 x10^3/uL (1.8-6.8); NEUTROPHILS % (AUTO) 56 % (42-75); PLATELET COUNT 348 x10^3/uL (130-400); RED BLOOD COUNT 4.06 x10^6/uL (3.82-5.3); RED CELL DISTRIBUTION WIDTH 13.5 % (9.6-15.2)
[2017-04-17 21:49] LABS: ALANINE AMINOTRANSFERASE 57 U/L (12-78); ALBUMIN 2.7 g/dL (3.4-5.0); ANION GAP 17 mmol/L (5-15); CHLORIDE 97 mmol/L (98-107); CREATININE 1.18 mg/dL (0.55-1.02)
[2017-04-17 21:51] LABS: ACETONE, SERUM Small (20mg/dL) mg/dL (Negative)
[2017-04-17 21:53] LABS: ALKALINE PHOSPHATASE 143 U/L (45-117); BILIRUBIN,TOTAL 0.2 mg/dL (0.2-1.0); TOTAL PROTEIN 6.4 g/dL (6.4-8.2)
[2017-04-17] MEDS ORDERED: SODIUM CHLORIDE 0.9% 1,000 ML IV ONE (22:05)
[2017-04-17 22:24] LABS: MICROSCOPIC NOT IND
[2017-04-17] MEDS ORDERED: INSULIN REGULAR 100 UNITS/ML, 3ML VIAL SQ-INSULIN ONE (22:30)
[2017-04-17] MEDS ORDERED: INSULIN REGULAR 100 UNITS/ML, 3ML VIAL ONE (22:31)
[2017-04-17 22:35] LABS: CULTURE INDICATED? NO
[2017-04-17] MEDS ORDERED: POTASSIUM CHLORIDE 20 MEQ TAB.ER.PRT ONE (22:44)
[2017-04-17] MEDS ORDERED: POTASSIUM CHLORIDE 20 MEQ TAB.ER.PRT PO ONE (23:00)
[2017-04-17 23:24] LABS: ALANINE AMINOTRANSFERASE 63 U/L (12-78); ALBUMIN 2.9 g/dL (3.4-5.0); ANION GAP 12 mmol/L (5-15); CALCIUM 8.6 mg/dL (8.5-10.1); CHLORIDE 100 mmol/L (98-107); CREATININE 0.82 mg/dL (0.55-1.02)
[2017-04-17 23:26] LABS: ALKALINE PHOSPHATASE 151 U/L (45-117); BILIRUBIN,TOTAL 0.2 mg/dL (0.2-1.0)
[2017-04-17 23:57] VITALS: BP 109/67
== END 2017-04-17 23:58 | disposition home or self-care (01) ==
LOC: ED 21:31
DX: E10.65 Type 1 diabetes mellitus with hyperglycemia (principal); Z79.4 Long term (current) use of insulin; E86.0 Dehydration; E87.6 Hypokalemia; K21.9 Gastro-esophageal reflux disease without esophagitis; E10.10 Type 1 diabetes mellitus with ketoacidosis without coma; F17.200 Nicotine dependence, unspecified, uncomplicated; Z88.0 Allergy status to penicillin; Z88.1 Allergy status to other antibiotic agents; Z88.8 Allergy status to other drugs, medicaments and biological substances
CPT/HCPCS: 36415; 80053; 81003; 82010; 82803; 82962; 83735; 84703; 85025; 96361; 96372; 96374; 99284; J2405; J7030

== ENCOUNTER → 2017-05-10 | Outpatient (CLI) | payer OTHER | END | disposition home or self-care (01) | LOC: CFH 11:35 | PROVIDERS: ATTEND Nurse Practitioner Family | DX: Z13.820 Encounter for screening for osteoporosis (principal); E10.65 Type 1 diabetes mellitus with hyperglycemia | CPT/HCPCS: 77080 ==

== ENCOUNTER 2017-06-29 22:24 | Inpatient (IN) | payer OTHER ==
[~2017-06-29] VITALS: Ht 167.6 cm; Wt 54.8 kg
[2017-06-29] MEDS ORDERED: MAALOX/HYOSCYAMINE/LIDOCAINE 45 ML BTL ONE (22:54)
[2017-06-29] MEDS ORDERED: ONDANSETRON 2MG/ML, 2ML ONE (22:54)
[2017-06-29] MEDS ORDERED: ONDANSETRON 2MG/ML, 2ML IVPush ONE (23:00)
[2017-06-29] MEDS ORDERED: SODIUM CHLORIDE 0.9% 1,000ML IVBOLUS ONE (23:00)
[2017-06-29] MEDS ORDERED: MAALOX/HYOSCYAMINE/LIDOCAINE 45 ML BTL PO ONE (23:00)
[2017-06-29 23:04] LABS: PH, VENOUS 7.378 pH (7.320-7.420)
[2017-06-29 23:08] LABS: BASOPHILS # (AUTO) 0.03 x10^3/uL (0-0.1); BASOPHILS % (AUTO) 0 % (0-1); EOSINOPHILS # (AUTO) 0.03 x10^3/uL (0-0.4); EOSINOPHILS % (AUTO) 0 % (1-7); LYMPHOCYTES # (AUTO) 1.45 x10^3/uL (1-3.4); LYMPHOCYTES % (AUTO) 18 % (22-44); MD NO; MEAN CORPUSCULAR HEMOGLOBIN 26.2 pg (27.0-34.8); MEAN CORPUSCULAR HGB CONC 32.4 g/dL (32.4-35.8); MEAN CORPUSCULAR VOLUME 80.7 fL (80-100); MONOCYTES # (AUTO) 0.41 x10^3/uL (0.2-0.8); MONOCYTES % (AUTO) 5 % (2-9); NEUTROPHILS # (AUTO) 6.29 x10^3/uL (1.8-6.8); NEUTROPHILS % (AUTO) 77 % (42-75); PLATELET COUNT 442 x10^3/uL (130-400); RED CELL DISTRIBUTION WIDTH 16.3 % (9.6-15.2)
[2017-06-29 23:10] LABS: ACETONE, SERUM Large (80mg/dL) mg/dL (Negative)
[2017-06-29 23:49] LABS: ALANINE AMINOTRANSFERASE 36 U/L (12-78); ALBUMIN 3.2 g/dL (3.4-5.0); ANION GAP 17 mmol/L (5-15); CALCIUM 9.8 mg/dL (8.5-10.1); CHLORIDE 86 mmol/L (98-107); CREATININE 1.33 mg/dL (0.55-1.02)
[2017-06-29 23:49] LABS: MICROSCOPIC NOT IND
[2017-06-29 23:51] LABS: CULTURE INDICATED? NO
[2017-06-29 23:52] LABS: ALKALINE PHOSPHATASE 159 U/L (45-117); BILIRUBIN,TOTAL 0.5 mg/dL (0.2-1.0); TOTAL PROTEIN 7.5 g/dL (6.4-8.2)
[2017-06-30 00:01] LABS: AMPHETAMINE SCREEN, URINE Positive (Negative); BARBITURATE SCREEN, URINE Negative (Negative); BENZODIAZEPINE SCREEN, URINE Negative (Negative); CANNABINOID SCREEN, URINE Negative (Negative); COCAINE SCREEN, URINE Negative (Negative); METHADONE SCREEN, URINE Negative (Negative); OPIATE SCREEN, URINE Negative (Negative)
[2017-06-30] MEDS ORDERED: ONDANSETRON 2MG/ML, 2ML ONE (00:40)
[2017-06-30] MEDS ORDERED: MAALOX/HYOSCYAMINE/LIDOCAINE 45 ML BTL ONE (00:41)
[2017-06-30] MEDS ORDERED: MORPHINE SULFATE 4 MG/ML, 1ML ONE (00:41)
[2017-06-30] MEDS ORDERED: INSULIN REGULAR 100 UNITS/ML, 3ML VIAL ONE (00:42)
[2017-06-30] MEDS ORDERED: MAALOX/HYOSCYAMINE/LIDOCAINE 45 ML BTL PO ONE (01:00)
[2017-06-30] MEDS ORDERED: MORPHINE SULFATE 4 MG/ML, 1ML IVPush ONE (01:00)
[2017-06-30] MEDS ORDERED: INSULIN REGULAR 100 UNITS/ML, 3ML VIAL IVPush ONE ×2 (01:00→01:30)
[2017-06-30] MEDS ORDERED: ONDANSETRON 2MG/ML, 2ML IVPush ONE (01:00)
[2017-06-30] MEDS ORDERED: SODIUM CHLORIDE 0.9% 1,000ML IVBOLUS ONE (01:00)
[2017-06-30] MEDS ORDERED: SODIUM CHLORIDE 0.45% 1,000 ML IV SCH (01:04)
[2017-06-30] MEDS ORDERED: REGULAR INSULIN 62.5 UNITS in SODIUM CHLORIDE 0.9% 249.375 ML IV PRN (01:04)
[2017-06-30] MEDS ORDERED: D5%-0.45% NACL 1,000 ML IV SCH (01:04)
[2017-06-30] MEDS ORDERED: SODIUM CHLORIDE 0.9% 1,000 ML IV SCH ×2 (01:04→07:00)
[2017-06-30 01:15] LABS: HEMOGLOBIN A1C 13.3 % (4.2-6.3)
[2017-06-30] MEDS ORDERED: GLUCAGON 1 MG IM PRN (01:30)
[2017-06-30] MEDS ORDERED: ONDANSETRON 2MG/ML, 2ML IVPush PRN (01:30)
[2017-06-30] MEDS ORDERED: ACETAMINOPHEN 325 MG TABLET PO PRN (01:30)
[2017-06-30] MEDS ORDERED: DEXTROSE 4 GM TAB.CHEW PO PRN (01:30)
[2017-06-30] MEDS ORDERED: DEXTROSE 50%, 50ML SYRINGE IVPush PRN (01:30)
[2017-06-30 01:47] LABS: ANION GAP 20 mmol/L (5-15); CALCIUM 10.4 mg/dL (8.5-10.1); CHLORIDE 87 mmol/L (98-107); CREATININE 1.31 mg/dL (0.55-1.02)
[2017-06-30 03:36] VITALS: BP 113/76
[2017-06-30] MEDS: ENOXAPARIN 40 MG/0.4 ML SQ SCH ×2 (03:45→20:14)
[2017-06-30 04:00] VITALS: BP 113/76
[2017-06-30 05:11] LABS: ANION GAP 14 mmol/L (5-15); CALCIUM 9.2 mg/dL (8.5-10.1); CHLORIDE 99 mmol/L (98-107)
[2017-06-30 05:14] LABS: CREATININE 1.29 mg/dL (0.55-1.02)
[2017-06-30 05:35] LABS: ACETONE, SERUM Large (80mg/dL) mg/dL (Negative)
[2017-06-30] MEDS ORDERED: INSULIN GLARGINE 100 UNITS/ML, PEN SQ-INSULIN SCH (09:00)
[2017-06-30] MEDS: SODIUM CHLORIDE 0.45% 1,000 ML IV SCH ×2 (09:59→20:21)
[2017-06-30] MEDS: SODIUM CHLORIDE FLUSH 10ML SYR IVF SCH ×2 (09:59→20:28)
[2017-06-30] MEDS ORDERED: ALUMINUM/MAG/SIMETHICONE 30 ML UDC PO PRN (10:00)
[2017-06-30] MEDS ORDERED: INSULIN LISPRO 100 UNITS/ML, PEN SQ-INSULIN SCH (11:00)
[2017-06-30 16:49] VITALS: BP 103/69
[2017-06-30 20:06] VITALS: BP 101/66
[2017-07-01 01:13] LABS: ANION GAP 8 mmol/L (5-15); CALCIUM 8.1 mg/dL (8.5-10.1); CHLORIDE 100 mmol/L (98-107); CREATININE 0.89 mg/dL (0.55-1.02)
[2017-07-01 02:54] VITALS: BP 104/74
[2017-07-01] MEDS: SODIUM CHLORIDE 0.45% 1,000 ML IV SCH ×2 (05:26→12:03)
[2017-07-01 06:02] LABS: ANION GAP 8 mmol/L (5-15); CALCIUM 8.2 mg/dL (8.5-10.1); CHLORIDE 104 mmol/L (98-107); CREATININE 0.92 mg/dL (0.55-1.02)
[2017-07-01 07:04] VITALS: BP 111/78
[2017-07-01] MEDS: SODIUM CHLORIDE FLUSH 10ML SYR IVF SCH (09:00)
[2017-07-01] MEDS ORDERED: OMEPRAZOLE 20 MG CAPSULE.DR PO SCH (10:00)
[2017-07-01 13:28] VITALS: BP 112/77
[2017-07-01 13:34] LABS: ANION GAP 11 mmol/L (5-15); CALCIUM 8.2 mg/dL (8.5-10.1); CHLORIDE 105 mmol/L (98-107); CREATININE 0.78 mg/dL (0.55-1.02)
== END 2017-07-01 16:45 | disposition home or self-care (01) | DRG 638 ==
LOC: ED 23:16 → EDIP 06-30 00:52 → SUATTDRO 06-30 01:04 → CCU 06-30 03:29 → 3NE 06-30 12:26
PROVIDERS: ADMIT Hospitalist; ATTEND Hospitalist
DX: E10.10 Type 1 diabetes mellitus with ketoacidosis without coma (principal); E44.0 Moderate protein-calorie malnutrition; N17.9 Acute kidney failure, unspecified; E10.42 Type 1 diabetes mellitus with diabetic polyneuropathy; Z68.1 Body mass index [BMI] 19.9 or less, adult; E86.0 Dehydration; F15.10 Other stimulant abuse, uncomplicated; F17.210 Nicotine dependence, cigarettes, uncomplicated; K21.9 Gastro-esophageal reflux disease without esophagitis; Z79.4 Long term (current) use of insulin; Z83.3 Family history of diabetes mellitus; Z91.19 Patient's noncompliance with other medical treatment and regimen; Z96.41 Presence of insulin pump (external) (internal)
CPT/HCPCS: 36415; 71045; 80048; 80053; 80307; 81003; 82010; 82803; 82962; 83036; 83690; 83735; 83930; 84100; 85025; 87081; 93005; 96361; 96374; 96375; J1815; J2405; J7030; J7050

== ENCOUNTER 2018-04-22 19:19 | Emergency (ER) | payer OTHER ==
[~2018-04-22] VITALS: Ht 157.5 cm; Wt 63.8 kg
[~2018-04-22 19:19] MED LIST changes: -NORT50CA PO; +NORT50CA52 PO
[2018-04-22 19:26] VITALS: BP 144/95
[2018-04-22 19:41] LABS: BASOPHILS # (AUTO) 0.05 x10^3/uL (0-0.1); BASOPHILS % (AUTO) 1 % (0-1); EOSINOPHILS # (AUTO) 0.38 x10^3/uL (0-0.4); EOSINOPHILS % (AUTO) 5 % (1-7); LYMPHOCYTES # (AUTO) 2.76 x10^3/uL (1-3.4); LYMPHOCYTES % (AUTO) 32 % (22-44); MD NO; MEAN CORPUSCULAR HEMOGLOBIN 28.6 pg (27.0-34.8); MEAN CORPUSCULAR HGB CONC 33.8 g/dL (32.4-35.8); MEAN CORPUSCULAR VOLUME 84.5 fL (80-100); MEAN PLATELET VOLUME 8.5 fL (7.4-10.4); MONOCYTES # (AUTO) 0.47 x10^3/uL (0.2-0.8); MONOCYTES % (AUTO) 6 % (2-9); NEUTROPHILS # (AUTO) 4.92 x10^3/uL (1.8-6.8); NEUTROPHILS % (AUTO) 57 % (42-75); PLATELET COUNT 360 x10^3/uL (130-400); RED BLOOD COUNT 5.09 x10^6/uL (3.82-5.3); RED CELL DISTRIBUTION WIDTH 13.5 % (9.6-15.2)
[2018-04-22 19:52] LABS: ANION GAP 8 mmol/L (5-15); CHLORIDE 100 mmol/L (98-107)
== END 2018-04-22 20:22 | disposition home or self-care (01) ==
LOC: ED 20:05
DX: M62.831 Muscle spasm of calf (principal); M79.662 Pain in left lower leg; E11.65 Type 2 diabetes mellitus with hyperglycemia; G62.9 Polyneuropathy, unspecified; E11.10 Type 2 diabetes mellitus with ketoacidosis without coma; F17.200 Nicotine dependence, unspecified, uncomplicated; F15.10 Other stimulant abuse, uncomplicated; Z72.9 Problem related to lifestyle, unspecified
CPT/HCPCS: 36415; 80048; 85025; 99284

== ENCOUNTER 2019-12-07 04:07 | Emergency (ER) | payer MEDICAID ==
[~2019-12-07] VITALS: Ht 167.6 cm; Wt 72.0 kg
[~2019-12-07 04:07] MED LIST changes: +BUSP10TA PO; +CITA20TA9 PO; +GABA300C10 PO; -GUAI200T3 PO; +GUAI200T37 PO; +NICO-486 TD; +OXYC5CAP2 PO
[2019-12-07] MEDS ORDERED: DEXTROSE 5% 1,000 ML IV SCH (04:30)
[2019-12-07] MEDS ORDERED: SODIUM CHLORIDE FLUSH 10ML SYR IVF ONE (04:30)
--- NOTE | 2019-12-07 04:31 | NUR ---
PT BIB [facility] FOR ETOH INTOXICATION AND HYPOGLYCEMIA. PT FSBG WAS 53. 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 PT HAS INSULIN PUMP. PT ANSWERING SOME QUESTIONS. PT SAYS PUMP GIVES INSULIN EVERY HOUR BY ITSELF. PT THEN FELL ASLEEP. FSBG IS 68 AFTER ASSESSMENT BY PA. PA AWARE AND RN AWAITING ORDERS. PT SAYS SHE DRANK ALOT OF VODKA TONIGHT. PT PLACED ON MONITORS. CALL LIGHT IN REACH
[2019-12-07] MEDS ORDERED: DEXTROSE 50%, 50ML SYRINGE ONE (04:52)
[2019-12-07] MEDS ORDERED: ONDANSETRON 2MG/ML, 2ML IVPush ONE (05:00)
[2019-12-07] MEDS ORDERED: DEXTROSE 50%, 50ML SYRINGE IVPush ONE (05:00)
[2019-12-07 05:10] LABS: ALBUMIN 3.3 g/dL (3.4-5.0); ANION GAP 7 mmol/L (5-15); CALCIUM 8.2 mg/dL (8.5-10.1); CHLORIDE 112 mmol/L (98-107)
[2019-12-07 05:14] LABS: ALANINE AMINOTRANSFERASE 37 U/L (12-78); ALKALINE PHOSPHATASE 158 U/L (45-117); BILIRUBIN,TOTAL 0.5 mg/dL (0.2-1.0); CREATININE 0.85 mg/dL (0.55-1.02); TOTAL PROTEIN 7.1 g/dL (6.4-8.2)
--- NOTE | 2019-12-07 05:30 | NUR ---
d5 running at 250 ml/hr. fsbg 147. vss. pt to go to ct. call light in reach
[2019-12-07 06:29] LABS: BASOPHILS # (AUTO) 0.02 x10^3/uL (0-0.1); BASOPHILS % (AUTO) 0 % (0-1); EOSINOPHILS # (AUTO) 0.06 x10^3/uL (0-0.4); EOSINOPHILS % (AUTO) 1 % (1-7); LYMPHOCYTES # (AUTO) 1.09 x10^3/uL (1-3.4); LYMPHOCYTES % (AUTO) 17 % (22-44); MD NO; MEAN CORPUSCULAR HEMOGLOBIN 30.7 pg (27.0-34.8); MEAN CORPUSCULAR HGB CONC 33.4 g/dL (32.4-35.8); MEAN CORPUSCULAR VOLUME 91.9 fL (80-100); MONOCYTES # (AUTO) 0.35 x10^3/uL (0.2-0.8); MONOCYTES % (AUTO) 5 % (2-9); NEUTROPHILS # (AUTO) 4.99 x10^3/uL (1.8-6.8); NEUTROPHILS % (AUTO) 77 % (42-75); PLATELET COUNT 234 x10^3/uL (130-400); RED BLOOD COUNT 4.46 x10^6/uL (3.82-5.3); RED CELL DISTRIBUTION WIDTH 12.2 % (9.6-15.2)
--- NOTE | 2019-12-07 06:46 | NUR ---
D5 STOPPED PER PA ORDER. FSBG NOW 181. PT RESTING VSS. CALL LIGHT IN REACH
--- NOTE | 2019-12-07 06:53 | NUR ---
I AM ASSUMING CARE OF THIS PT FROM MELVIN (BEV) AT THIS TIME. SBAR WAS EXCHANGED AT THE BEDSIDE.
[2019-12-07 08:01] VITALS: BP 103/70
--- NOTE | 2019-12-07 08:12 | NUR ---
PT SLEEPING SONOROUSLY ON AN E.R. GURNEY. VS AND BLOOD GLUCOSE ARE WITHIN REASONABLE LIMITS, AND ARE STABLE. PT NOT REQUIRING SUPPLEMENTAL O2 AT THIS TIME. I WILL ALLOW HER TO METABOLIZE HER ALCOHOL A BIT MORE PRIOR TO AWAKENING FOR AMBULATION.
--- NOTE | 2019-12-07 09:45 | NUR ---
PT AWAKE, ALERT AND ORIENTED. SHE HAS EATEN BREAKFAST WITH NO DISTRESS. INSULIN PUMP IN PLACE, AND FUNCTIONING APPRPRIATELY. SHE IS AMBULATING WITH A STAND BY ASSIST. I HAVE NOTIFIED FAMILY IN REGARD TO A RIDE HOME, AND AM EXPECTING THEIR ARRIVAL.
--- NOTE | 2019-12-07 10:12 | NUR ---
PT AMBULATED WITH A STEADY GAIT ALONG WITH A FAMILY MEMBER TO DC DESK. APPROPRIATE TO D/C AT THIS TIME.
== END 2019-12-07 10:21 | disposition home or self-care (01) ==
LOC: ED 09:34
DX: G92 Toxic encephalopathy (principal); E10.649 Type 1 diabetes mellitus with hypoglycemia without coma; F10.220 Alcohol dependence with intoxication, uncomplicated; Z88.8 Allergy status to other drugs, medicaments and biological substances; Z96.41 Presence of insulin pump (external) (internal); Y90.9 Presence of alcohol in blood, level not specified
CPT/HCPCS: 36415; 70450; 80053; 80307; 82962; 84703; 85025; 96361; 96374; 99285; J7070; 99284; 99291

== ENCOUNTER 2020-02-09 00:08 | Emergency (ER) | payer MEDICAID ==
[~2020-02-09] VITALS: Ht 170.2 cm; Wt 67.3 kg
--- NOTE | 2020-02-09 00:27 | NUR ---
Pt BIB [facility] with c/o N/V and abd pain. Pt was here earlier tonight for same. 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 States only food today was M&Ms and ETOH. Pt is type 1 DM and has insulin pump. 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 PT states "I feel like my blood sugar is rising." Pt received Zofran and fluids SUBSTITUTE TEACHER with no relief.
[2020-02-09] MEDS ORDERED: FAMOTIDINE 20 MG/2 ML IV ONE (00:30)
[2020-02-09] MEDS ORDERED: SODIUM CHLORIDE 0.9% 1,000ML IVBOLUS ONE (00:30)
[2020-02-09] MEDS ORDERED: MAALOX/HYOSCYAMINE/LIDOCAINE 45 ML BTL PO ONE (00:30)
[2020-02-09] MEDS ORDERED: METOCLOPRAMIDE 5 MG/ML, 2ML IVPush ONE (00:30)
--- NOTE | 2020-02-09 00:30 | NUR ---
Report to Rogelio tate RN.
[2020-02-09 00:50] LABS: BASOPHILS % (AUTO) 1 % (0-1); EOSINOPHILS % (AUTO) 0 % (1-7); LYMPHOCYTES % (AUTO) 6 % (22-44); MEAN CORPUSCULAR HEMOGLOBIN 30.2 pg (27.0-34.8); MEAN CORPUSCULAR HGB CONC 33.3 g/dL (32.4-35.8); MONOCYTES % (AUTO) 3 % (2-9); NEUTROPHILS % (AUTO) 91 % (42-75); PLATELET COUNT 313 x10^3/uL (130-400)
[2020-02-09 00:53] LABS: ALANINE AMINOTRANSFERASE 24 U/L (12-78); ALBUMIN 3.7 g/dL (3.4-5.0); ANION GAP 13 mmol/L (5-15); CALCIUM 8.6 mg/dL (8.5-10.1); CHLORIDE 111 mmol/L (98-107); CREATININE 1.27 mg/dL (0.55-1.02)
[2020-02-09 00:55] LABS: ALKALINE PHOSPHATASE 143 U/L (45-117); BILIRUBIN,TOTAL 0.4 mg/dL (0.2-1.0); TOTAL PROTEIN 7.7 g/dL (6.4-8.2)
[2020-02-09] MEDS ORDERED: METOCLOPRAMIDE 5 MG/ML, 2ML ONE (01:03)
[2020-02-09] MEDS ORDERED: MAALOX/HYOSCYAMINE/LIDOCAINE 45 ML BTL ONE (01:03)
[2020-02-09] MEDS ORDERED: FAMOTIDINE 20 MG/2 ML ONE (01:04)
[2020-02-09 01:11] LABS: MD SCAN
[2020-02-09 01:47] VITALS: BP 139/84
== END 2020-02-09 02:09 | disposition home or self-care (01) ==
LOC: ED 00:35
DX: K29.20 Alcoholic gastritis without bleeding (principal); E10.65 Type 1 diabetes mellitus with hyperglycemia; R11.2 Nausea with vomiting, unspecified; R10.9 Unspecified abdominal pain; K21.9 Gastro-esophageal reflux disease without esophagitis; E87.6 Hypokalemia; F17.210 Nicotine dependence, cigarettes, uncomplicated
CPT/HCPCS: 36415; 80053; 83690; 85025; 93005; 96361; 96374; 96375; 99284; 99406; J2765; J7030

== ENCOUNTER 2020-07-04 22:15 | Emergency (ER) | payer MEDICAID ==
[~2020-07-04] VITALS: Ht 170.2 cm; Wt 71.2 kg
[~2020-07-04 22:15] MED LIST changes: +ASPI-1026 PO; -ASPI-650 PO; -OXYC-306 PO; +OXYC1TAB17 PO; -OXYC5TAB3 PO; +OXYC5TAB98 PO
--- NOTE | 2020-07-04 22:28 | NUR ---
BIB [facility] FOR C/O N/V/ABD PAIN SINCE 0800 TODAY. PT. IS DIABETIC. FSBS BY EMS 296. IV ESTABLISHED AND 4MG ZOFRAN AND 50MCG FENTANYL EN ROUTE WELL. AT TIME OF ARRIVAL TO ED PT. ONLY C/O EPIGASTRIC BURNING R/T VOMITNG. STATES DRINKS 5 SHOTS OF VODKA PER DAY. LAST DRINK 1.5 DAYS AGO. IN FOR EVAL. SPO2 AND B/P MONITORS PLACED. BLANKETS PROVIDED. CALL LIGHT IN REACH.
[2020-07-04] MEDS ORDERED: SODIUM CHLORIDE 0.9% 1,000ML IVBOLUS ONE (22:30)
[2020-07-04] MEDS ORDERED: MORPHINE SULFATE 4 MG/ML, 1ML IVPush PRN (22:30)
[2020-07-04] MEDS ORDERED: ONDANSETRON 2MG/ML, 2ML IVPush ONE (22:30)
[2020-07-04] MEDS ORDERED: MAALOX/HYOSCYAMINE/LIDOCAINE 45 ML BTL PO ONE (22:30)
[2020-07-04] MEDS ORDERED: MAALOX/HYOSCYAMINE/LIDOCAINE 45 ML BTL ONE (22:31)
[2020-07-04] MEDS ORDERED: MORPHINE SULFATE 4 MG/ML, 1ML ONE (22:31)
--- NOTE | 2020-07-04 22:40 | NUR ---
PT. MEDIATED PER JUN. EKG DONE AND PRESENTED TO ERP. LAB AT BS. PT. AWARE OF NEED FOR UA.
--- NOTE | 2020-07-04 22:50 | NUR ---
PT. REPORTS NO NAUSEA AT THIS TIME AND PAIN DOWN TO 5/10. IVF INFUSING. PT. AWARE OF NEED FOR UA WHEN ABLE.
[2020-07-04 22:52] LABS: BASOPHILS % (AUTO) 0 % (0-1); EOSINOPHILS % (AUTO) 0 % (1-7); LYMPHOCYTES % (AUTO) 3 % (22-44); MD SCAN; MEAN CORPUSCULAR HEMOGLOBIN 30.7 pg (27.0-34.8); MEAN CORPUSCULAR HGB CONC 33.3 g/dL (32.4-35.8); MEAN PLATELET VOLUME 9.3 fL (7.4-10.4); MONOCYTES % (AUTO) 3 % (2-9); NEUTROPHILS % (AUTO) 94 % (42-75); PLATELET COUNT 258 x10^3/uL (130-400); RED BLOOD COUNT 4.38 x10^6/uL (3.82-5.3); RED CELL DISTRIBUTION WIDTH 13.6 % (9.6-15.2)
[2020-07-04 23:04] LABS: ALANINE AMINOTRANSFERASE 28 U/L (12-78); ALBUMIN 3.5 g/dL (3.4-5.0); ANION GAP 11 mmol/L (5-15); CALCIUM 8.5 mg/dL (8.5-10.1); CHLORIDE 108 mmol/L (98-107); CREATININE 1.26 mg/dL (0.55-1.02)
[2020-07-04 23:08] LABS: ALKALINE PHOSPHATASE 139 U/L (45-117); BILIRUBIN,TOTAL 0.6 mg/dL (0.2-1.0); TOTAL PROTEIN 7.2 g/dL (6.4-8.2)
[2020-07-04 23:35] VITALS: BP 131/86
[2020-07-04] MEDS ORDERED: ONDANSETRON ODT 4 MG ONE (23:47)
--- NOTE | 2020-07-04 23:52 | NUR ---
DURING D/C INSTRUCTIONS PT. BECAME VERY NAUSEATED AND REQUESTED MORE NAUSEA MEDS.
[2020-07-05] MEDS ORDERED: ONDANSETRON ODT 4 MG PO ONE
--- NOTE | 2020-07-05 00:10 | NUR ---
PT. REPORTS SHE IS STILL FEELING VERY NAUSEATED BUT "I JUST WANT TO GO HOME AND TRY TO SLEEP." DR. DONAHUE OFFERED FOR PT. TO GET ANOTHER IV AND MORE MEDS AND PT. CHOSE TO GO HOME AND TRY TO WAIT IT OUT. PT. REPORTS SHE WILL RETURN IF NOT GETTING BETTER. AMBULATORY TO D/C DESK WITH STEADY GAIT.
== END 2020-07-05 00:12 | disposition home or self-care (01) ==
LOC: ED 07-05 00:06
DX: E10.43 Type 1 diabetes mellitus with diabetic autonomic (poly)neuropathy (principal); K31.84 Gastroparesis; R11.2 Nausea with vomiting, unspecified; R10.13 Epigastric pain; K21.9 Gastro-esophageal reflux disease without esophagitis
CPT/HCPCS: 36415; 80053; 83690; 84703; 85025; 93005; 96361; 96374; 99284; J2270; J7030; Q0162